=== PATIENT | female | born 1990 | race Caucasian/White ===

== ENCOUNTER 2020-10-02 04:22 | Outpatient (RCR) | payer BC, SELFPAY | END 2020-10-06 23:59 | LOC: EMPH 04:22 | PROVIDERS: Visit Provider Family Medicine Geriatric Medicine | DX: Z03.818 Encounter for observation for suspected exposure to other biological agents ruled out (principal) | CPT/HCPCS: 87426 ==

== ENCOUNTER 2020-10-29 10:28 | Outpatient (RCR) | payer SELFPAY ==
[2014-05-20 22:06] VITALS: BMI 35.2
== END 2020-11-06 23:59 ==
LOC: EMPH 10:28
PROVIDERS: Visit Provider Family Medicine Geriatric Medicine
DX: Z03.818 Encounter for observation for suspected exposure to other biological agents ruled out (principal)
CPT/HCPCS: 87426

== ENCOUNTER → 2021-07-26 | Outpatient (CLI) | payer OTHER, MEDICAID, SELFPAY ==
[2021-08-01 18:17] LABS: HPV Reflexed? NOT INDICATED
== END | disposition home or self-care (01) ==
LOC: LABSPEC 17:05
PROVIDERS: Referring Provider Obstetrics & Gynecology; Visit Provider Obstetrics & Gynecology
DX: Z12.4 Encounter for screening for malignant neoplasm of cervix (principal)
CPT/HCPCS: 88175; G0145

== ENCOUNTER → 2022-06-09 | Outpatient (CLI) | payer OTHER, MEDICAID, SELFPAY ==
[2022-06-09 15:20] LABS: Absolute Neutrophil Count 3.8 X10^3/uL (2.0-7.7); Basophil# 0.03 X10^3/uL; Basophil% 0.4 % (0-1); Eosinophil# 0.07 X10^3/uL; Hematocrit 40.3 % (37-47); Hemoglobin 13.3 g/dL (12.0-15.0); Lymphocyte % 32.9 % (19-41); Mean Corpuscular Hgb 28.4 pg (27.0-32.0); Mean Corpuscular Volume 86.1 fL (81-99); Mean Platelet Vol. 11.5 fl (6.2-12.0); NRBC Flagged by Analyzer 0 % (0-5); Neutrophil # 3.76 X10^3/uL (2.7-7.7); Neutrophil % 56.4 % (47-70); Platelet Count 301 K/mm3 (150-450); RBC Distribution Width CV 12.7 % (11.6-14.6); RBC Distribution Width SD 39.7 fl (35.1-43.9); Red Blood Count 4.68 M/mm3 (4.2-5.4); White Blood Count 6.7 K/mm3 (4.4-11.0)
[2022-06-09 16:04] LABS: Hemoglobin A1c 5.5 % (3.8-5.6)
[2022-06-09 16:05] LABS: AST(SGOT) 20 U/L (15-37); Alanine Aminotransfer ALT/SGPT 39 U/L (13-56); Albumin, Serum 3.8 g/dL (3.2-5.0); Alkaline Phosphatase 48 U/L (45-117); Anion Gap 5 (5-15); BUN 13 mg/dL (7-18); BUN/Creat Ratio 15.7 RATIO (10-20); Calcium,Total 8.8 mg/dL (8.5-10.1); Chloride 109 mmol/L (98-107); Cholesterol 207 mg/dL (200); Creatinine, Serum 0.83 mg/dL (0.55-1.02); EST Glomerular Filtration Rate 86 mL/min (>60); Est Glom Filt Rate - Afr Amer 104 mL/min (>60); Globulin 3.9 g/dL (2.2-4.2); Glucose 91 mg/dL (74-106); High Density Lipoprotein 40 mg/dL; Potassium 3.9 mmol/L (3.5-5.1); Protein, Total 7.7 g/dL (6.4-8.2); Sodium Level 139 mmol/L (136-145); Thyroid Stim Hormone (TSH) 1.47 uIU/mL (0.358-3.74); Triglycerides 99 mg/dL; Very Low Density Lipoprotein 20 mg/dL (5-40)
== END | disposition home or self-care (01) ==
LOC: MFPLAB 12:07
PROVIDERS: Visit Provider Family Medicine
DX: Z13.29 Encounter for screening for other suspected endocrine disorder (principal); E78.2 Mixed hyperlipidemia; Z13.1 Encounter for screening for diabetes mellitus
CPT/HCPCS: 36415; 80053; 80061; 83036; 84443; 85025

== ENCOUNTER → 2022-08-07 | Outpatient (CLI) | payer OTHER, MEDICAID, SELFPAY | END | disposition home or self-care (01) | PROVIDERS: Visit Provider Family Medicine | DX: J02.9 Acute pharyngitis, unspecified (principal) | CPT/HCPCS: 87070; 87077 ==

== ENCOUNTER → 2023-10-30 | Outpatient (CLI) | payer OTHER, SELFPAY ==
--- NOTE | 2023-10-30 12:58 | RAD_ITS ---
STUDY: X-RAY CHEST REASON FOR EXAM: Female, 33 years old. Cough. TECHNIQUE: Frontal and lateral views of the chest. COMPARISON: None. FINDINGS: The lungs are clear and expanded. There is no demonstrated pleural abnormality. Normal size heart. Normal mediastinum and tegan. Normal visualized pulmonary arteries. Normal visualized aortic arch and descending thoracic aorta. Normal visualized thoracic spine. Normal visualized ribs, clavicles, and shoulders. No abnormality of the visualized soft tissue structures of the upper abdomen. RAD/Chest PA and Lateral IMPRESSION: Normal x-ray examination of the chest. Electronically Signed: Nasim Rivas MD at 13:44 EDT ,
== END | disposition home or self-care (01) ==
LOC: MTRAD 12:58
PROVIDERS: PCP Family Medicine; Referring Provider Physician Assistant Surgical; Visit Provider Physician Assistant Surgical
DX: U07.1 COVID-19 (principal)
CPT/HCPCS: 71046

== ENCOUNTER → 2023-12-11 | Outpatient (CLI) | payer OTHER, SELFPAY ==
[2023-12-11 15:53] LABS: Vitamin D,25 Hydroxy 29.7 ng/mL
[2023-12-11 16:00] LABS: Hemoglobin A1c 5.3 % (3.8-5.6)
== END | disposition home or self-care (01) ==
LOC: BIMLAB 14:04
PROVIDERS: PCP Family Medicine; Referring Provider Registered Nurse; Visit Provider Registered Nurse
DX: Z13.1 Encounter for screening for diabetes mellitus (principal); Z13.21 Encounter for screening for nutritional disorder; Z13.29 Encounter for screening for other suspected endocrine disorder
CPT/HCPCS: 36415; 82306; 83036; 84439; 84443

== ENCOUNTER → 2023-12-23 | Outpatient (CLI) | payer OTHER, SELFPAY ==
[2023-12-23 17:46] LABS: Platelet Count 296 K/mm3 (150-450); RET-HE 31.6 pg (30-35); Reticulocyte Count 1.71 % (0.5-1.5)
[2023-12-23 17:48] LABS: Prothrombin Time (Protime)PT. 12.7 SECONDS (11.7-14.9)
[2023-12-23 17:54] LABS: Erythrocyte Sedimentation Rate 8 mm/hr (0-30)
[2023-12-23 18:26] LABS: CRP 3.17 mg/L (0.0-3.0); Ferritin 49 ng/mL (8-252); Iron 63 ug/dL (50-170); Iron Binding Capacity,Total 337 ug/dL (250-450); LDH 210 U/L (84-246); Rheumatoid Factor < 10.0 IU/mL (<15)
[2023-12-29 14:09] LABS: Anti-Centromere B Ab <0.2 AI (0.0-0.9); Anti-Chromatin <0.2 AI (0.0-0.9); Anti-Jo <0.2 AI (0.0-0.9); Anti-Mitochondrial AB <20.0 Units (0.0-20.0); Anti-Scleroderma-70 AB 0.3 AI (0.0-0.9); Anti-dsDNA Ab 2 IU/mL (0-9); RNP Ab 0.3 AI (0.0-0.9); SJOGREN'S Anti-SS-A test < 0.2 AI (0.0-0.9); SJOGREN'S Anti-SS-B test < 0.2 AI (0.0-0.9); Smith Ab <0.2 AI (0.0-0.9)
[2023-12-30 15:09] LABS: ACCA 42 units (0-90); ALCA 22 units (0-60); AMCA 48 units (0-100); Albumin 3.5 g/dL (2.9-4.4); Alpha-1-Globulins 0.2 g/dL (0.0-0.4); Alpha-2-Globulins 0.7 g/dL (0.4-1.0); Angiotensin Convert Enzyme 40 U/L (14-82); Anti-Smooth Muscle ABS 9 Units (0-19); CCP IgG Antibodies 9 units (0-19); Ceruloplasmin 25.3 mg/dL (19.0-39.0); Copper, Serum or Plasma 108 ug/dL (80-158); Cytoplasmic Ab (C-ANCA) <1:20 titer (Neg:<1:20); Endomysial Antibody IgA Negative (Negative); Gamma Globulin 1.4 g/dL (0.4-1.8); Immunoglobulin A 326 mg/dL (87-352); Immunoglobulin E 2 IU/mL (.); Immunoglobulin G 1241 mg/dL (586-1602); Immunoglobulin M 261 mg/dL (26-217); Perinuclear Ab (P-ANCA) <1:20 titer (Neg:<1:20); Transferrin 270 mg/dL (192-364); gASCA 29 units (0-50); t-Transglutaminase IgA 11 U/mL (0-3)
== END | disposition home or self-care (01) ==
LOC: BIMLAB 15:23
PROVIDERS: PCP Family Medicine; Referring Provider Internal Medicine Gastroenterology; Visit Provider Internal Medicine Gastroenterology
DX: R74.01 Elevation of levels of liver transaminase levels (principal); K58.9 Irritable bowel syndrome, unspecified
CPT/HCPCS: 36415; 82164; 82390; 82525; 82607; 82728; 82746; 82784; 82785; 83516; 83540; 83550; 83615; 84165; 84443; 84466; 85045; 85610; 85652; 86036; 86037; 86140; 86200; 86225; 86235; 86255; 86334; 86431; 86671

== ENCOUNTER → 2024-01-01 | Outpatient (CLI) | payer OTHER, SELFPAY ==
--- NOTE | 2024-01-01 08:29 | US_ITS ---
STUDY: ABDOMINAL ULTRASOUND - RIGHT UPPER QUADRANT; ELASTOGRAPHY REASON FOR VISIT: Female, 33 years old. Elevated liver enzymes. TECHNIQUE: Ultrasound evaluation of the right upper quadrant was performed with real-time and static damian-scale imaging. Point quantification shear wave elastography was performed (Plastio). TECHNICAL QUALITY: Adequate. COMPARISON: None. FINDINGS: Liver: The liver measures 16.5 cm. There is increased echogenicity consistent with fatty infiltration. The bile ducts are within normal limits. There is hepatic color flow. The direction of portal flow is hepatopetal. There is no demonstrated mass lesion. Median liver stiffness measured 7.6 kPa. Gallbladder: Normal distended gallbladder. The gallbladder wall measures 1.7 mm. There is a negative sonographic Victor''s sign. There is no pericholecystic fluid. There are no gallstones. Sludge is seen within the gallbladder lumen. Common Bile Duct (C.B.D.): The common bile duct measures 2.3 mm. Pancreas: There is normal echogenicity of the visualized pancreas. There is no demonstrated pancreatic mass or cyst. Right Kidney: Normal size of the right kidney. The right kidney measures 10.7 cm x 4.3 cm x 5.2 cm. Normal renal cortex. The right cortex measures 1.4 cm. There is no demonstrated renal mass or cyst. There is no right hydronephrosis. US/ABD Limited w/ Elastography IMPRESSION: 1. Liver stiffness measures 7.6 kPa compatible with F2-F3 (Mild to moderate liver fibrosis) Metavir score. Electronically Signed: Sony Espinoza MD at 11:10 EDT ,
--- OUTSIDE RECORDS SUMMARY | 2024-01-01 08:52 | XMS RPT_ITS | CCD ---
Author Organization [facility] Care Team Providers Care Paid Search Marketing Analyst Name Role Phone EL PARKS Attending Unavailable EL PARKS Primary Care Unavailable Smooth Charles MD Primary Care Provider [phone] Smooth Charles MD Primary Care Provider [phone] OLDER, LI Attending Unavailable SMOOTH CHARLES Primary Care Unavailable SMOOTH CHARLES Primary Care Unavailable OLDER, LI Referring Unavailable OLDER, LI Referring Unavailable OLDER, LI Attending Unavailable SMOOTH CHARELS Primary Care Unavailable SMOOTH CHARLES Primary Care Unavailable Medications Current Medications Medication Drug Class(es) Dates Sig (Normalized) Sig (Original) cephalexin 500 mg oral capsule (1 source) Cephalosporin Antibacterial Start: 11-13-2021 End: 11-18-2021 take 1 capsule by mouth three times daily cephALEXin (KEFLEX) 500 mg capsule Take 1 capsule by mouth three times daily for 5 days. 15 capsule 0 11/13/2021 11/18/2021 Active Comment on above: [facility]. Completed/Discontinued Medications Medication Drug Class(es) Dates Sig (Normalized) Sig (Original) ergocalciferol 1.25 mg oral capsule (2 sources) Provitamin D2 Compound Start: 06-04-2021 End: 08-06-2021 take 1 capsule by mouth every week ergocalciferol 50,000 unit capsule (VITAMIN D2, DRISDOL) Take 1 capsule by mouth one time a week. 12 capsule 0 06/04/2021 08/06/2021 Discontinued (Course of therapy completed) Comment on above: [facility]. ondansetron 4 mg disintegrating oral tablet (5 sources) Serotonin-3 Receptor Antagonist Start: 05-17-2021 End: 06-04-2021 take 1 tablet by mouth every six hours as needed ondansetron orally disintegrating (ZOFRAN ODT) 4 mg disintegrating tablet Take 1 tablet by mouth every 6 hours as needed for nausea/vomiting. 30 tablet 2 06/04/2021 Active Comment on above: Take 1 tablet by sandra th every 6 hours as needed for nausea/vomiting. rimegepant 75 mg disintegrating oral tablet (5 sources) Start: 06-04-2021 End: 08-06-2021 take 1 tablet by mouth once daily rimegepant (NURTEC ODT) 75 mg disintegrating tablet Take 1 tablet by mouth once daily. 30 tablet 11 08/06/2021 Active Comment on above: Take 1 tablet by sandra th once daily as needed. Take 1 tablet by sandra th once daily. SUMAtriptan 50 mg oral tablet (4 sources) Serotonin-1b and Serotonin-1d Receptor Agonist Start: 05-15-2021 SUMAtriptan (IMITREX) 50 mg tablet Take at onset of migraine. Can repeat in 2 hours if no relief. No more than 100 mg in 24 hours 9 tablet 2 05/15/2021 Active Comment on above: Take at onset of vahe trish. Can repeat in 2 hours if no relief. No more than 100 mg in 24 hours Problems Active Problems Problem Classification Problem Date Documented Da te Episodic/Chronic Diseases of white blood cells (2 sources) Leukocytosis; Translations: [Elevated white blood cell count, unspecified] Onset: 07-29-2021 Chronic Headache; including migraine (9 sources) Migraine without aura, not refractory ; Translations: [Chronic migraine without aura, not intractable, without status migrainosus] Onset: 05-17-2021 Chronic Nutritional deficiencies (3 sources) Vitamin D deficiency; Translations: [Vitamin D deficiency, unspecified] Onset: 07-29-2021 Chronic Other skin disorders (1 source) Localized swelling of left lower leg; Translations: [Localized swelling, mass and lump, left lower limb] Episodic Skin and subcutaneous tissue infections (1 source) Cellulitis of left lower limb; Translations: [Cellulitis of left lower limb] Episodic Past or Other Problems Problem Classification Problem Date Documented Da te Episodic/Chronic Diabetes mellitus without complication (2 sources) Increased glucose level; Translations: [Other abnormal glucose] Onset: 07-29-2021 Episodic Other skin disorders (2 sources) Nonscarring hair loss, unspecified; Translations: [Nonscarring hair loss, unspecified] Onset: 05-12-2017 Episodic Results Test Name Value Interpretation Reference Range Hudson Dimas 06-09-2022 JUDITHN Telephone (FAMPWS) PASCALE VELA ([id number]) 1990 F Date Time Provider Department 06/09/22 SMOOTH CHARLES FAMPWS During your visit today, we recorded the following information about you: Lynette Rodriguez LPN 06/09/2022 10:47 AM Signed Fuad pharmacist with [facility] Pharmacy called to let you know the followin)Nurtec comes in pack of 8 and usually insurance will cover 8 per month. May want to put thru for as needed. 2)Medication will need a PA done PRIOR AUTHORIZATION Medication for Prior Authorization: Nurtex Other formulary meds available : NO Insurance Company: Primary - [facility] hospital Insurance [employer] 2nd Ins. [place] Medicaid [employer] phone number: Prim [phone] 2nd Ins [phone] Patient insurance ID number: [id number] 3)can change medication to something else. This has not been sent to our PA dept. yet. Lynette Rodriguez LPN Allergies As of Date: 06/09/2022 (No Known Allergies) Date Reviewed: 11/27/2021 Reviewed by: Li Blackmon APRN.[facility] - Fully Assessed Reason for Visit: Medication Problem [65] Order(s):rimegepant (NURTEC ODT) 75 mg disintegrating tabletTake 1 tablet by mouth every other day.Disp: 16 tabletRfl: 5 Prescriptions as of 06/11/2022 - rimegepant (NURTEC ODT) 75 mg disintegrating tablet Take 1 tablet by mouth every other day. - ondansetron orally disintegrating (ZOFRAN ODT) 4 mg disintegrating tablet Take 1 tablet by mouth every 6 hours as needed for nausea/vomiting. - SUMAtriptan (IMITREX) 50 mg tablet Take at onset of migraine. Can repeat in 2 hours if no relief. No more than 100 mg in 24 hours Problem List As Of Date 06/09/2022 Noted Resolved Family history of Down syndrome [Z82.79] 05/11/2012 09/11/2014 Supervision of normal first [Z34.00] 07/20/2012 01/02/2014 Short interval between pregnancies complicating* 4 09/11/2014 Support system deficit [Z65.8] 10/10/2013 09/11/2014 Nausea/vomiting in [O21.9] 10/10/2013 09/11/2014 Diarrhea [R19.7] 10/10/2013 09/11/2014 Supervision of normal [Z34.90] 01/02/2014 09/11/2014 Heavy menstrual bleeding [N92.0] 09/11/2014 05/15/2021 Abnormal uterine bleeding [N93.9] 09/11/2014 05/15/2021 Cervicalgia [M54.2] 10/02/2017 05/15/2021 Benign mole [D22.9] 01/04/2018 05/15/2021 Neoplasm of uncertain behavior of skin [D48.5] 01/04/2018 05/15/2021 Intractable chronic migraine without aura and w*05/17/2021 Chronic migraine without aura without status mi*08/06/2021 Prescriptions ordered this encounter Disp Refills Start End NURTEC ODT 75 MG DISINTEGRATING TABL* 16 t* 5 06/09/2022 Route: ORAL Sig: Take 1 tablet by mouth every other day. Medications Discontinued During This Encounter Prescriptions - rimegepant (NURTEC ODT) 75 mg disintegrating tablet (Discontinued) Take 1 tablet by mouth once daily. Encounter Status:Closed by LYNETTE RODRIGUEZ LPN on 06/11/22 [facility] CNOVon 11-27-2021 CNOV Office Visit (INT[facility] ) PASCALE VELA ([id number]) 1990 F Date Time Provider Department 11/27/21 2:40 PM OLDER, LI GUADARRAMA During your visit today, we recorded the following information about you: Temperature Pulse Respiration Blood pressure 97.3 degrees 68/minute 18/minute 124/74 Weight 88 kg Li Older, GRADER OPERATOR.BEAD TRIMMER 11/27/2021 2:44 PM Signed CC: Patient presents with: Contusion HPI Pascale Vela is a 31 year old female who presents today for above. Patient reports bruised appearing swollen area on the side of her left lower leg. She denies any injury to leg, unsure where it came from. She was seen for this in urgent care on 11/13. Treated for possible cellulitis with Keflex. Patient reports this did not help. Area has become more tender. Denies increase in size or change in color. She has treated with ice without any improvement. REVIEW OF SYSTEMS General: no fevers, no chills, no night sweats, and no change in energy PAST MEDICAL HISTORY Diagnosis Date Abnormal uterine bleeding 09/11/2014 Benign mole 01/04/2018 Added automatically from request for surgery [id number] Cervicalgia 10/02/2017 Heavy menstrual bleeding 09/11/2014 IBS (irritable bowel syndrome) Migraines Neoplasm of uncertain behavior of skin 01/04/2018 PM - PAST MEDICAL HISTORY OF 06/04/2006 normal color vision PAST SURGICAL HISTORY Procedure Laterality Date COLONOSCOPY FLX DX W/COLLJ SPEC WHEN PFRMD Colonoscopy PAST SURGICAL HISTORY OF CERVICAL LACERATION REPAIR ALLERGIES Patient has no known allergies. MEDICATIONS rimegepant (NURTEC ODT) 75 mg disintegrating tablet Take 1 tablet by mouth once daily. ondansetron orally disintegrating (ZOFRAN ODT) 4 mg disintegrating tablet Take 1 tablet by mouth every 6 hours as needed for nausea/vomiting. SUMAtriptan (IMITREX) 50 mg tablet Take at onset of migraine. Can repeat in 2 hours if no relief. No more than 100 mg in 24 hours FAMILY HISTORY Problem Relation Age of Onset No Known Problems Mother No Known Problems Father other (Mole removed) Brother Cancerous Lung Cancer Maternal Grandmother Heart Maternal Grandfather murmur Hypertension Paternal Grandmother Breast Cancer Paternal Grandmother Heart Paternal Grandfather [place], Pacemaker age 35 year Diabetes Paternal Grandfather No Known Problems Daughter No Known Problems Son Social History Tobacco Use Smoking status: Never Smokeless tobacco: Never Vaping Use Vaping Use: Never used Substance Use Topics Alcohol use: Yes Comment: Rarely Drug use: No PHYSICAL EXAM BP 124/74 (BP Site: Left Arm, BP Position: Sitting, BP Cuff Size: Large Adult) Pulse 68 Temp 36.3 ?C (97.3 ?F) (Temporal) Resp 18 Wt 88 kg (194 lb) LMP 10/24/2018 BMI 36.96 kg/m? General Appearance: well appearing, in no acute distress, alert Ext: no edema in LE bilaterally, good distal pulses, capillary refill < 2 seconds ASSESSMENT/PLAN: 1. Localized swelling of left lower leg - ICD9: 782.2, ICD10: R22.42 Etiology unclear. Possible hematoma. Findings not consistent with infection/abscess. - US EXTREMITY MASS/FLUID COLLECTION LT, patient prefers to have done at [facility] - follow-up pending results Prescription instructions reviewed with patient as applicable. Potential red flag symptoms discussed with the patient. Reviewed appropriate action plan to take if red flag symptoms occur. Patient agreeable to treatment plan. Li Blackmon APRN.CNP Referring Provider: SELF [200] Allergies As of Date: 11/27/2021 (No Known Allergies) Date Reviewed: 11/27/2021 Reviewed by: Li Blackmon APRN.CNP - Fully Assessed Reason for Visit: Contusion [Other] Primary Visit Diagnosis:Localized swelling of left lower leg [R22.42] Order(s):US EXTREMITY MASS/FLUID COLLECTION LT [[id number]] Order #: [id number] FUTURE Prescriptions as of 11/27/2021 - rimegepant (NURTEC ODT) 75 mg disintegrating tablet Take 1 tablet by mouth once daily. - ondansetron orally disintegrating (ZOFRAN ODT) 4 mg disintegrating tablet Take 1 tablet by mouth every 6 hours as needed for nausea/vomiting. - SUMAtriptan (IMITREX) 50 mg tablet Take at onset of migraine. Can repeat in 2 hours if no relief. No more than 100 mg in 24 hours Problem List As Of Date 11/27/2021 Noted Resolved Family history of Down syndrome [Z82.79] 05/11/2012 09/11/2014 Supervision of normal first [Z34.00] 07/20/2012 01/02/2014 Short interval between pregnancies complicating* 4 09/11/2014 Support system deficit [Z65.8] 10/10/2013 09/11/2014 Nausea/vomiting in [O21.9] 10/10/2013 09/11/2014 Diarrhea [R19.7] 10/10/2013 09/11/2014 Supervision of normal [Z34.90] 01/02/2014 09/11/2014 Heavy menstrual bleeding [N92.0] 09/11/2014 05/15/2021 Abnormal uterine bleeding [N93.9] 09/11/2014 05/15/2021 Cervicalgia [M54.2] 10/02/2017 05/15/2021 Benign mol (more content not included)... Normal [facility] CNOVon 11-13-2021 [facility] PASCALE VELA ([id number]) 1990 F Date Time Provider Department 11/13/21 11:45 AM JUSTIN MUNIZ [facility] During your visit today, we recorded the following information about you: Temperature Pulse Respiration Blood pressure 98 degrees 92/minute 16/minute 118/68 Weight 88.9 kg Justin Muniz APRN.BEAD TRIMMER 11/13/2021 12:14 PM Signed Subjective HPI Nontoxic-appearing female presents urgent care chief complaint rash and redness. Duration of symptoms 1 month. Associated symptoms area started out as a small red teddy. Has since increased in size and discomfort. Patient states over the last week this area has increased in size and has became painful. Has not used any OTC medications. Denies any Injuries. No recent medication changes or recent antibiotic use. No recent lifestyle changes or environmental changes. Denies any fever body aches chills cough chest pain shortness of breath change in bowel or bladder habits. Overall feels well. Denies chance of is not breast-feeding. .Patient presents with: Derm Problem: rash and redness on left sanders, painful x 1 month PAST MEDICAL HISTORY Diagnosis Date Abnormal uterine bleeding 09/11/2014 Benign mole 01/04/2018 Added automatically from request for surgery [id number] Cervicalgia 10/02/2017 Heavy menstrual bleeding 09/11/2014 IBS (irritable bowel syndrome) Migraines Neoplasm of uncertain behavior of skin 01/04/2018 PMH - PAST MEDICAL HISTORY OF 06/04/2006 normal color vision PAST SURGICAL HISTORY Procedure Laterality Date COLONOSCOPY FLX DX W/COLLJ SPEC WHEN PFRMD Colonoscopy PAST SURGICAL HISTORY OF CERVICAL LACERATION REPAIR ALLERGIES Patient has no known allergies. MEDICATIONS rimegepant (NURTEC ODT) 75 mg disintegrating tablet Take 1 tablet by mouth once daily. ondansetron orally disintegrating (ZOFRAN ODT) 4 mg disintegrating tablet Take 1 tablet by mouth every 6 hours as needed for nausea/vomiting. SUMAtriptan (IMITREX) 50 mg tablet Take at onset of migraine. Can repeat in 2 hours if no relief. No more than 100 mg in 24 hours FAMILY HISTORY Problem Relation Age of Onset No Known Problems Mother No Known Problems Father other (Mole removed) Brother Cancerous Lung Cancer Maternal Grandmother Heart Maternal Grandfather murmur Hypertension Paternal Grandmother Breast Cancer Paternal Grandmother Heart Paternal Grandfather [place], Pacemaker age 35 year Diabetes Paternal Grandfather No Known Problems Daughter No Known Problems Son Social History Tobacco Use Smoking status: Never Smokeless tobacco: Never Vaping Use Vaping Use: Never used Substance Use Topics Alcohol use: Yes Comment: Rarely Drug use: No BP 118/68 Pulse 92 Temp 36.7 ?C (98 ?F) Resp 16 Wt 88.9 kg (196 lb) LMP 10/24/2018 SpO2 99% BMI 37.34 kg/m? Review of Systems Constitutional: Negative for chills, fever and malaise/fatigue. HENT: Negative for congestion, ear discharge, ear pain, sinus pain and sore throat. Eyes: Negative for blurred vision, pain, discharge and redness. Respiratory: Negative for cough, hemoptysis, sputum production, shortness of breath, wheezing and stridor. Cardiovascular: Negative for chest pain. Gastrointestinal: Negative for abdominal pain, diarrhea, nausea and vomiting. Musculoskeletal: Negative for myalgias. Skin: Positive for itching. Negative for rash. Neurological: Negative for dizziness and headaches. Objective Physical Exam Constitutional: General: She is not in acute distress. Appearance: She is not diaphoretic. HENT: Head: Normocephalic. Eyes: Conjunctiva/sclera: Conjunctivae normal. Pupils: Pupils are equal, round, and reactive to light. Cardiovascular: Rate and Rhythm: Normal rate and regular rhythm. Heart sounds: Normal heart sounds. Pulmonary: Effort: Pulmonary effort is normal. No tachypnea, accessory muscle usage or respiratory distress. Breath sounds: Normal breath sounds. No stridor. No wheezing, rhonchi or rales. Abdominal: Palpations: Abdomen is soft. Tenderness: There is no abdominal tenderness. Musculoskeletal: Cervical back: Normal range of motion and neck supple. No rigidity or tenderness. Lymphadenopathy: Cervical: No cervical adenopathy. Skin: General: Skin is warm and dry. Comments: A 4 cm x 3 cm area of of redness noted. No fluctuance. No remote redness. No drainage. Pain with palpation over this area. No breaks in skin. Neurological: Mental Status: She is alert and oriented to person, place, and time. ASSESSMENT/PLAN: 1. Cellulitis of left lower extremity - ICD9: 682.6, ICD10: L03.116 Contact dermatitis versus cellulitis. Will be placed on Keflex at today's visit. Follow-up with PCP 3 to 5 days symptoms are not improving. Patient was educated on supportive therapies. Patient was instructed to im (more content not included)... Normal [facility] CNOVon 08-06-2021 CNOV Office Visit ([facility] ) PASCALE VELA ([id number]) 1990 F Date Time Provider Department 08/06/21 1:40 PM OLDER, LI CONSTANTINOMMYNOR During your visit today, we recorded the following information about you: Pulse Respiration Blood pressure Weight 76/minute 14/minute 112/82 86.2 kg Li Older, GRADER OPERATOR.JUDITH 08/06/2021 2:03 PM Signed CC: Patient presents with: Medication Follow-up HPI Pascale Vela is a 31 year old female who presents today for above. Patient was started on Nurtec 06/04 for frequent, debilitating migraines. Today she reports she has only had 3 migraines since starting medication. They were not severe and resolved quickly without interfering with ADL's.She has only needed Zofran and Imitrex for one of those migraines. No side effects. She was also treated for vitamin D deficiency x 12 weeks. Fatigue has resolved and vit D level normal. REVIEW OF SYSTEMS See HPI PAST MEDICAL HISTORY Diagnosis Date - Abnormal uterine bleeding 09/11/2014 - Benign mole 01/04/2018 Added automatically from request for surgery [id number] - Cervicalgia 10/02/2017 - Heavy menstrual bleeding 09/11/2014 - IBS (irritable bowel syndrome) - Migraines - Neoplasm of uncertain behavior of skin 01/04/2018 - PMH - PAST MEDICAL HISTORY OF 06/04/2006 normal color vision PAST SURGICAL HISTORY Procedure Laterality Date - COLONOSCOPY FLX DX W/COLLJ SPEC WHEN PFRMD Colonoscopy - PAST SURGICAL HISTORY OF CERVICAL LACERATION REPAIR ALLERGIES Patient has no known allergies. MEDICATIONS rimegepant (NURTEC ODT) 75 mg disintegrating tablet Take 1 tablet by mouth once daily as needed. ondansetron orally disintegrating (ZOFRAN ODT) 4 mg disintegrating tablet Take 1 tablet by mouth every 6 hours as needed for nausea/vomiting. SUMAtriptan (IMITREX) 50 mg tablet Take at onset of migraine. Can repeat in 2 hours if no relief. No more than 100 mg in 24 hours FAMILY HISTORY Problem Relation Age of Onset - No Known Problems Mother - No Known Problems Father - other (Mole removed) Brother Cancerous - Lung Cancer Maternal Grandmother - Heart Maternal Grandfather murmur - Hypertension Paternal Grandmother - Breast Cancer Paternal Grandmother - Heart Paternal Grandfather [place], Pacemaker age 35 year - Diabetes Paternal Grandfather - No Known Problems Daughter - No Known Problems Son Social History Tobacco Use - Smoking status: Never Smoker - Smokeless tobacco: Never Used Vaping Use - Vaping Use: Never used Substance Use Topics - Alcohol use: Yes Comment: Rarely - Drug use: No PHYSICAL EXAM BP 112/82 Pulse 76 Resp 14 Wt 86.2 kg (190 lb) LMP 10/24/2018 BMI 36.20 kg/m? General Appearance: well appearing, in no acute distress, alert Pysch: mood and affect broad and appropriate DATA REVIEWED: Most recent labs ASSESSMENT/PLAN: 1. Chronic migraine without aura without status migrainosus, not intractable - ICD9: 346.70, ICD10: G43.709 (primary diagnosis) Marked improvement with Nurtec. Only 3 migraine days since starting. No medication side effects. Continue with Nurtec as prescribed. Follow-up in May for annual physical. 2. Vitamin D deficiency - ICD9: 268.9, ICD10: E55.9 resolved Prescription instructions reviewed with patient as applicable. Potential red flag symptoms discussed with the patient. Reviewed appropriate action plan to take if red flag symptoms occur. Patient agreeable to treatment plan. During this patient visit I have spent approximately 20 minutes in counseling regarding medications, test results and coordinating care. Li Blackmon APRN.CNP Referring Provider: LI BLACKMON [[id number]] Allergies As of Date: 08/06/2021 (No Known Allergies) Date Reviewed: 08/06/2021 Reviewed by: Li Blackmon APRN.BEAD TRIMMER - Fully Assessed Reason for Visit: Medication Follow-up [270] Primary Visit Diagnosis:Chronic migraine without aura without status migrainosus, not intractable [G43.709] Other Visit Diagnosis:Vitamin D deficiency [E55.9] Order(s):rimegepant (NURTEC ODT) 75 mg disintegrating tabletTake 1 tablet by mouth once daily.Disp: 30 tabletRfl: 11 Prescriptions as of 08/06/2021 - rimegepant (NURTEC ODT) 75 mg disintegrating tablet Take 1 tablet by mouth once daily. - ondansetron orally disintegrating (ZOFRAN ODT) 4 mg disintegrating tablet Take 1 tablet by mouth every 6 hours as needed for nausea/vomiting. - SUMAtriptan (IMITREX) 50 mg tablet Take at onset of migraine. Can repeat in 2 hours if no relief. No more than 100 mg in 24 hours Problem List As Of Date 08/06/2021 Noted Resolved Family history of Down syndrome [Z82.79] 05/11/2012 09/11/2014 Supervision of normal first [Z34.00] 07/20/2012 01/02/2014 Short interval between pregnancies complicating* 4 09/11/2014 Support system deficit [Z65.8] 10/10/2013 09/11/2014 Nausea/vomiting in [O21.9] (more content not included)... Normal [facility] CBC W Auto Differential pane l (Bld)on 07-29-2021 Basophils (Bld) [#/Vol] 0.05 10*3/uL Normal <0.11 [facility] Comment on above: Order Comment: Speci men Type: BLOOD SPECIMEN Ordering Facility: [facility] Address: [address] [place] [address] Performed By: #### 5 7021-8 #### [facility] CLIA [id number] [address] [place] [address] [place] Basophils/100 WBC (Bld) 0.6 % Normal [facility] Comment on above: Order Comment: Verónica martinez Type: BLOOD SPECIMEN Ordering Facility: [facility] Address: [address] [place] [address] Performed By: #### 5 7021-8 #### [facility] CLIA [id number] [address] [place] [address] [place] Differential cell count method Nom (Bld) Auto Normal [facility] Comment on above: Order Comment: Nehai juan Type: BLOOD SPECIMEN Ordering Facility: [facility] Address: [address] [place] [address] Performed By: #### 5 7021-8 #### [facility] CLIA [id number] [address] [place] [address] [place] Eosinophils (Bld) [#/Vol] 0.14 10*3/uL Normal <0.46 [facility] Comment on above: Order Comment: Speci men Type: BLOOD SPECIMEN Ordering Facility: [facility] Address: [address] [place], [place] [id number] Performed By: #### 5 7021-8 #### [facility] CLIA [id number] [address] [place] [address] [place] Eosinophils/100 WBC (Bld) 1.8 % Normal [facility] Comment on above: Order Comment: Speci men Type: BLOOD SPECIMEN Ordering Facility: [facility] Address: [address] [place], [place] [id number] Performed By: #### 5 7021-8 #### [facility] CLIA [id number] [address] [place] [address] [place] Erythrocyte distribution width (RBC) [Ratio] 12.6 % Normal 11.5-15.0 [facility] Comment on above: Order Comment: Speci men Type: BLOOD SPECIMEN Ordering Facility: [facility] Address: [address] [place], [place] [id number] Performed By: #### 5 7021-8 #### [facility] CLIA [id number] [address] [place] [address] [place] Hematocrit (Bld) [Volume fraction] 38.3 % Normal 36.0-46.0 [facility] Comment on above: Order Comment: Speci men Type: BLOOD SPECIMEN Ordering Facility: [facility] Address: [address] [place], [place] [address] Performed By: #### 5 7021-8 #### [facility] CLIA [id number] [address] [place] [address] [place] Hemoglobin (Bld) [Mass/Vol] 12.3 g/dL Normal 11.5-15.5 [facility] Comment on above: Order Comment: Speci men Type: BLOOD SPECIMEN Ordering Facility: [facility] Address: [address] [place], [place] [address] Performed By: #### 5 7021-8 #### [facility] CLIA [id number] [address] [place] [address] [place] IMMATURE GRAN % 0.3 % Normal [facility] Comment on above: Order Comment: Speci men Type: BLOOD SPECIMEN Ordering Facility: [facility] Address: [address] [place], [place] [address] Performed By: #### 5 7021-8 #### [facility] CLIA [id number] [address] [place] [address] [place] IMMATURE GRAN ABS <0.03 Normal <0.10 [facility] Comment on above: Order Comment: Speci men Type: BLOOD SPECIMEN Ordering Facility: [facility] Address: [address] [place] [address] Performed By: #### 5 7021-8 #### [facility] CLIA [id number] [address] [place] [address] [place] Lymphocytes (Bld) [#/Vol] 2.94 10*3/uL Normal 1.00-4.00 [facility] Comment on above: Order Comment: Speci men Type: BLOOD SPECIMEN Ordering Facility: [facility] Address: [address] [place], [place] [address] Performed By: #### 5 7021-8 #### [facility] CLIA [id number] [address] [place] [address] [place] Lymphocytes/100 WBC (Bld) 37.5 % Normal [facility] Comment on above: Order Comment: Speci men Type: BLOOD SPECIMEN Ordering Facility: [facility] Address: [address] [place] [address] Performed By: #### 5 7021-8 #### [facility] CLIA [id number] [address] [place] [address] [place] MCH (RBC) [Entitic mass] 27.7 pg Normal 26.0-34.0 [facility] Comment on above: Order Comment: Speci men Type: BLOOD SPECIMEN Ordering Facility: [facility] Address: [address] [place] [address] Performed By: #### 5 7021-8 #### [facility] CLIA [id number] [address] [place] [address] [place] MCHC (RBC) [Mass/Vol] 32.1 g/dL Normal 30.5-36.0 [facility] Comment on above: Order Comment: Speci men Type: BLOOD SPECIMEN Ordering Facility: [facility] Address: [address] [place] [address] Performed By: #### 5 7021-8 #### [facility] CLIA [id number] [address] [place] [address] [place] MCV (RBC) [Entitic vol] 86.3 fL Normal 80.0-100.0 [facility] Comment on above: Order Comment: Speci men Type: BLOOD SPECIMEN Ordering Facility: [facility] Address: [address] [place] [address] Performed By: #### 5 7021-8 #### [facility] CLIA [id number] [address] [place] [address] [place] Monocytes (Bld) [#/Vol] 0.78 10*3/uL Normal <0.87 [facility] Comment on above: Order Comment: Speci men Type: BLOOD SPECIMEN Ordering Facility: [facility] Address: [address] [place], [place] [address] Performed By: #### 5 7021-8 #### [facility] CLIA [id number] [address] [place] [address] [place] Monocytes/100 WBC (Bld) 10.0 % Normal [facility] Comment on above: Order Comment: Speci men Type: BLOOD SPECIMEN Ordering Facility: [facility] Address: [address] [place], [place] [address] Performed By: #### 5 7021-8 #### [facility] CLIA [id number] [address] [place] [address] [place] Neutrophils (Bld) [#/Vol] 3.90 10*3/uL Normal 1.45-7.50 [facility] Comment on above: Order Comment: Speci men Type: BLOOD SPECIMEN Ordering Facility: [facility] Address: [address] [place] [address] Performed By: #### 5 7021-8 #### [facility] CLIA [id number] [address] [place] [address] [place] Neutrophils/100 WBC (Bld) 49.8 % Normal [facility] Comment on above: Order Comment: Speci men Type: BLOOD SPECIMEN Ordering Facility: [facility] Address: [address] [place], [place] [address] Performed By: #### 5 7021-8 #### [facility] CLIA [id number] [address] [place] [address] [place] Nucleated RBC (Bld) [#/Vol] 10*3/uL Normal <0.01 [facility] Comment on above: Order Comment: Speci men Type: BLOOD SPECIMEN Ordering Facility: [facility] Address: [address] [place] [address] Performed By: #### 5 7021-8 #### [facility] CLIA [id number] [address] [place] [address] [place] Nucleated RBC/100 WBC (Bld) [Ratio] 0.0 /100 WBC Normal [facility] Comment on above: Order Comment: Speci men Type: BLOOD SPECIMEN Ordering Facility: [facility] Address: [address] [place] [address] Performed By: #### 5 7021-8 #### [facility] CLIA [id number] [address] [place] [address] [place] Platelet mean volume (Bld) [Entitic vol] 11.9 fL Normal 9.0-12.7 [facility] Comment on above: Order Comment: Speci men Type: BLOOD SPECIMEN Ordering Facility: [facility] Address: [address] [place], [place] [address] Performed By: #### 5 7021-8 #### [facility] CLIA [id number] [address] [place] [address] [place] Platelets (Bld) [#/Vol] 284 10*3/uL Normal 150-400 [facility] Comment on above: Order Comment: Speci men Type: BLOOD SPECIMEN Ordering Facility: [facility] Address: [address] [place], [place] [address] Performed By: #### 5 7021-8 #### [facility] CLIA [id number] [address] [place] [address] [place] RBC (Bld) [#/Vol] 4.44 10*6/uL Normal 3.90-5.20 [facility] Comment on above: Order Comment: Speci men Type: BLOOD SPECIMEN Ordering Facility: [facility] Address: [address] [place], [place] [address] Performed By: #### 5 7021-8 #### [facility] CLIA [id number] [address] [place] [address] [place] WBC (Bld) [#/Vol] 7.83 10*3/uL Normal 3.70-11.00 [facility] Comment on above: Order Comment: Speci men Type: BLOOD SPECIMEN Ordering Facility: [facility] Address: [address] [place], [place] [address] Performed By: #### 5 7021-8 #### [facility] CLIA [id number] [address] [place] [address] [place] HGB A1Con 07-29-2021 Average glucose Estimated from glycated hemoglobin (Bld) [Mass/Vol] 108 mg/dL Normal [facility] Comment on above: Order Comment: Verónica martinez Type: BLOOD SPECIMEN Ordering Facility: [facility] Address: [address] [place] [address] Result Comment: eAG: (Estimated average glucose) is a calculated value from HgbA1c and is customer solutions representative of the average blood glucose level in the last 2-3 month period. Performed By: #### H BA1C #### [facility] CLIA [id number] [address] [place] [address] [place] [facility] HbA1c (Bld) [Mass fraction] 5.4 % Normal 4.3-5.6 [facility] Comment on above: Order Comment: Verónica martinez Type: BLOOD SPECIMEN Ordering Facility: [facility] Address: [address] [place] [address] Result Comment: Amer [place] Diabetes Association guidelines indicate that patients with HgbA1c in the range 5.7-6.4% are at increased risk for development of diabetes, and intervention by lifestyle modification may be beneficial. HgbA1c greater or equal to 6.5% is considered diagnostic of diabetes. Performed By: #### H BA1C #### [facility] CLIA [id number] [address] [place] [address] [place] VITAMIN D 25 HYDROXYon 07-29 25-hydroxyvitamin D3 [Mass/Vol] 35.8 ng/mL Normal 31.0-80.0 [facility] Comment on above: Order Comment: Verónica martinez Type: BLOOD SPECIMEN Ordering Facility: [facility] Address: [address] [place] [address] Result Comment: Clas sification of 25 [place] Vitamin D status: Deficiency/Insufficiency: < or = 30 ng/ml. Sufficiency/Optimal Levels: 31-80 ng/mL Toxicity: > 100 ng/mL. Test performed by chemiluminescent immunoassay. Performed By: #### V ITD #### [facility] CLIA [id number] [address] [place] [address] [place] COVID PCR, SCREENING CONGREG ATEon 09-01-2019 CORONAVIRUS 2019,PCR NOT DETECTED Normal Not Detected [facility] Comment on above: Result Comment: This assay is designed to detect the N, ORF1ab and/or S genes of SARS-CoV-2 via nucleic acid amplification. A Negative (NOT DETECTED) result does not preclude 2019-nCoV infection since the adequacy of sample collection and/or low viral burden may result in presence of viral nucleic acids below the clinical sensitivity of this test method. Negative (NOT DETECTED) result should not be used as the sole basis for treatment or other patient management decisions. Rather negative results should be combined with clinical observations, patient history, and epidemiological information to make patient management decisions. Fact sheet for providers: https://www.fda.gov/media/816847/download Fact sheet for patients: https://www.fda.gov/media/297184/download This test has received FDA Emergency Use Authorization (EUA) and has been verified by [facility]). This test is only authorized for the duration of time that circumstances exist to justify the authorization of the emergency use of in vitro diagnostic tests for the detection of SARS-CoV-2 virus and/or diagnosis of COVID-19 infection under section 564(b)(1) of the Act, 21 U.S.C. 360bbb-3(b)(1), unless the authorization is terminated or revoked sooner. [facility]) is certified under CLIA-88 as qualified to perform high complexity testing. This tests analytical performance characteristics have been determined by [facility]. Testing is performed at [facility] is located at [address] [place] [address] (CLIA License #[id number], CAP #[id number]). Performed By: #### C VCLA #### [facility] [address] [place] [address] COVID PCR, SCREENING CONGREG ATEon 08-31-2019 Lab Specimen Source Nasal, Nasopharyngeal Normal [facility] Comment on above: Performed By: #### C VCLA #### [facility] [address] [place] [address] .Auto Diffon 05-12-2017 Ammonia mass conc (P) 0.70 10 3/mcL Normal 0.15-1.00 [facility] [place] Comment on above: Performed By: #### C BC, ADIFF, ANEU, TSH, CMP, GFR #### [address] [address] Basophils #/vol (Bld) 0.00 10 3/mcL Normal 0.00-0.19 [facility] [place] Comment on above: Performed By: #### C BC, ADIFF, ANEU, TSH, CMP, GFR #### [address] [address] Basophils/100 WBC (Bld) 0.5 % Normal 0.0-2.5 [facility] [place] Comment on above: Performed By: #### C BC, ADIFF, ANEU, TSH, CMP, GFR #### [address] [address] Eosinophils #/vol (Bld) 0.10 10 3/mcL Normal 0.00-0.40 [facility] [place] Comment on above: Performed By: #### C BC, ADIFF, ANEU, TSH, CMP, GFR #### [address] [address] Eosinophils/100 WBC (Bld) 1.0 % Normal 0.0-7.0 [facility] [place] Comment on above: Performed By: #### C BC, ADIFF, ANEU, TSH, CMP, GFR #### [address] [address] Lymphocytes #/vol (Bld) 2.70 10 3/mcL Normal 0.77-3.85 [facility] [place] Comment on above: Performed By: #### C BC, ADIFF, ANEU, TSH, CMP, GFR #### [address] [address] Lymphocytes/100 WBC (Bld) 36.1 % Normal 10.0-50.0 [facility] [place] Comment on above: Performed By: #### C BC, ADIFF, ANEU, TSH, CMP, GFR #### [address] [address] Monocytes/100 WBC (Bld) 9.0 % Normal 1.7-13.0 [facility] [place] Comment on above: Performed By: #### C BC, ADIFF, ANEU, TSH, CMP, GFR #### [address] [address] Neutrophils/100 WBC (Bld) 53.4 % Normal 37.0-80.0 [facility] [place] Comment on above: Performed By: #### C BC, ADIFF, ANEU, TSH, CMP, GFR #### [address] [address] .GFRon 05-12-2017 GFR Non- >60 Normal [facility] ([place] Comment on above: Result Comment: GFR Population mean for , Non- Americans Ages 20-29 = 116 mL/min/1.73 sq.m. Ages 30-39 = 107 mL/min/1.73 sq.m. Ages 40-49 = 99 mL/min/1.73 sq.m. Ages 50-59 = 93 mL/min/1.73 sq.m. Ages 60-69 = 85 mL/min/1.73 sq.m. Ages 70+ = 75 mL/min/1.73 sq.m. Chronic Kidney Disease: Less than 60 mL/min/1.73 square meters End Stage Renal Disease: Less than 15 mL/min/1.73 square meters Performed By: #### C BC, ADIFF, ANEU, TSH, CMP, GFR #### [address] [address] GFR 110 ml/min/1.73sqm Normal [facility] [place] Comment on above: Result Comment: GFR Population mean for , Non- Americans Ages 20-29 = 116 mL/min/1.73 sq.m. Ages 30-39 = 107 mL/min/1.73 sq.m. Ages 40-49 = 99 mL/min/1.73 sq.m. Ages 50-59 = 93 mL/min/1.73 sq.m. Ages 60-69 = 85 mL/min/1.73 sq.m. Ages 70+ = 75 mL/min/1.73 sq.m. Chronic Kidney Disease: Less than 60 mL/min/1.73 square meters End Stage Renal Disease: Less than 15 mL/min/1.73 square meters Performed By: #### C BC, ADIFF, ANEU, TSH, CMP, GFR #### [place] [id number] .NEUABSon 05-12-2017 Neutrophils #/vol (Bld) 4.00 10 3/mcL Normal 2.85-6.16 [facility] [place] Comment on above: Performed By: #### C BC, ADIFF, ANEU, TSH, CMP, GFR #### [place] [address] CBCon 05-12-2017 Erythrocyte distribution width Ratio (RBC) 13.5 % Normal 11.5-14.5 [facility] ([place] Comment on above: Performed By: #### C BC, ADIFF, ANEU, TSH, CMP, GFR #### [place] [address] Hematocrit Volume Fraction (Bld) 39.3 % Normal 37.0-47.0 [facility] ([place] Comment on above: Performed By: #### C BC, ADIFF, ANEU, TSH, CMP, GFR #### [place] [address] Hemoglobin mass conc (Bld) 12.8 G/dL Normal 12.0-16.0 [facility] ([place] Comment on above: Performed By: #### C BC, ADIFF, ANEU, TSH, CMP, GFR #### [place] [address] MCH Entitic mass (RBC) 27.4 pg Normal 27.0-31.2 [facility] ([place] Comment on above: Performed By: #### C BC, ADIFF, ANEU, TSH, CMP, GFR #### [place] [address] MCHC mass conc (RBC) 32.5 G/dL Low 33.0-37.0 [facility] ([place] Comment on above: Performed By: #### C BC, ADIFF, ANEU, TSH, CMP, GFR #### [address] [address] MCV Entitic volume (RBC) 84.3 fL Normal 80.0-94.0 [facility] ([place] Comment on above: Performed By: #### C BC, ADIFF, ANEU, TSH, CMP, GFR #### [place] [address] Platelet mean volume Entitic volume (Bld) 9.8 fL Normal 7.4-10.4 [facility] ([place] Comment on above: Performed By: #### C BC, ADIFF, ANEU, TSH, CMP, GFR #### [address] [address] Platelets #/vol (Bld) 350 10 3/mcL Normal 130-400 [facility] ([place] Comment on above: Performed By: #### C BC, ADIFF, ANEU, TSH, CMP, GFR #### [address] [address] RBC #/vol (Bld) 4.67 10 6/mcL Normal 4.20-5.40 [facility] ([place] Comment on above: Performed By: #### C BC, ADIFF, ANEU, TSH, CMP, GFR #### [address] [address] WBC #/vol (Bld) 7.50 10 3/mcL Normal 4.60-10.80 [facility] ([place] Comment on above: Performed By: #### C BC, ADIFF, ANEU, TSH, CMP, GFR #### [address] [address] CMPon 05-12-2017 Albumin mass conc 4.3 G/dL Normal 3.5-5.0 [facility] ([place] Comment on above: Performed By: #### C BC, ADIFF, ANEU, TSH, CMP, GFR #### [place] [id number] Albumin/Globulin mass ratio 1.5 {ratio} Normal 1.1-2.5 [facility] ([place] Comment on above: Performed By: #### C BC, ADIFF, ANEU, TSH, CMP, GFR #### [address] [address] ALP enzyme act/vol 49 U/L Normal 40-135 [facility] ([place] Comment on above: Performed By: #### C BC, ADIFF, ANEU, TSH, CMP, GFR #### [address] [address] ALT enzyme act/vol 14 U/L Normal 10-35 [facility] ([place] Comment on above: Performed By: #### C BC, ADIFF, ANEU, TSH, CMP, GFR #### [address] [address] AST enzyme act/vol 13 U/L Normal 10-40 [facility] ([place] Comment on above: Performed By: #### C BC, ADIFF, ANEU, TSH, CMP, GFR #### [address] [address] Bili Total 0.4 mg/dL Normal 0.2-1.0 [facility] ([place] Comment on above: Performed By: #### C BC, ADIFF, ANEU, TSH, CMP, GFR #### [address] [address] Calcium mass conc 9.3 mg/dL Normal 8.4-10.2 [facility] ([place] Comment on above: Performed By: #### C BC, ADIFF, ANEU, TSH, CMP, GFR #### [address] [address] Chloride molar conc 103 mmol/L Normal 98-107 [facility] ([place] Comment on above: Performed By: #### C BC, ADIFF, ANEU, TSH, CMP, GFR #### [address] [address] CO2 molar conc 26 mmol/L Normal 22-29 [facility] ([place] Comment on above: Performed By: #### C BC, ADIFF, ANEU, TSH, CMP, GFR #### [address] [address] Creatinine mass conc 0.8 mg/dL Normal 0.6-1.2 [facility] ([place] Comment on above: Performed By: #### C BC, ADIFF, ANEU, TSH, CMP, GFR #### [address] [address] Electrolyte Balance 9.0 mEq/L Normal [facility] ([place] Comment on above: Performed By: #### C BC, ADIFF, ANEU, TSH, CMP, GFR #### [place] [address] Globulin mass conc (S) 2.9 G/dL Normal [facility] ([place] Comment on above: Performed By: #### C BC, ADIFF, ANEU, TSH, CMP, GFR #### [place] [address] Glucose mass conc 93 mg/dL Normal 70-105 [facility] ([place] Comment on above: Performed By: #### C BC, ADIFF, ANEU, TSH, CMP, GFR #### [place] [address] Potassium molar conc 4.6 mmol/L Normal 3.5-5.1 [facility] ([place] Comment on above: Performed By: #### C BC, ADIFF, ANEU, TSH, CMP, GFR #### [place] [address] Protein mass conc 7.2 G/dL Normal 6.0-8.3 [facility] ([place] Comment on above: Performed By: #### C BC, ADIFF, ANEU, TSH, CMP, GFR #### [place] [address] Sodium molar conc 138 mmol/L Normal 136-146 [facility] ([place] Comment on above: Performed By: #### C BC, ADIFF, ANEU, TSH, CMP, GFR #### [facility] [place] [address] [place], [place] [address] Urea nitrogen mass conc 11.5 mg/dL Normal 7.0-18.0 [facility] ([place] Comment on above: Performed By: #### C BC, ADIFF, ANEU, TSH, CMP, GFR #### [address] [address] Urea nitrogen/Creatinin e mass ratio 14 ratio Normal 7-27 [facility] ([place] Comment on above: Performed By: #### C BC, ADIFF, ANEU, TSH, CMP, GFR #### [address] [address] TSHon 05-12-2017 Thyrotropin Qn 0.72 mcIU/mL Normal 0.27-4.20 [facility] ([place] Comment on above: Performed By: #### C BC, ADIFF, ANEU, TSH, CMP, GFR #### [address] [address] Vital Signs Date Time Vital Sign Value Performing Clinician Ofelia schultz 11-27-2021 14:19-0400 Body temperature 97.3 [degF] 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BEAD TRIMMER Work Phone: [facility] 11-27-2021 14:19-0400 Body weight 88 kg 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BEAD TRIMMER Work Phone: [facility] 11-27-2021 14:19-0400 Diastolic blood pressure 74 mm[Hg] 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BEAD TRIMMER Work Phone: [facility] 11-27-2021 14:19-0400 Heart rate 68 /min 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BEAD TRIMMER Work Phone: [facility] 11-27-2021 14:19-0400 Respiratory rate 18 /min 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BEAD TRIMMER Work Phone: [facility] 11-27-2021 14:19-0400 Systolic blood pressure 124 mm[Hg] 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BEAD TRIMMER Work Phone: [facility] 11-13-2021 11:47-0400 Body temperature 98.01 [degF] Justin Muniz GRADER OPERATOR.BEAD TRIMMER Work Phone: [facility] 11-13-2021 11:47-0400 Body weight 88.91 [facility] GRADER OPERATOR.BEAD TRIMMER Work Phone: [facility] 11-13-2021 11:47-0400 Diastolic blood pressure 68 mm[Hg] [facility] GRADER OPERATOR.BEAD TRIMMER Work Phone: [facility] 11-13-2021 11:47-0400 Heart rate 92 /min [facility] GRADER OPERATOR.BEAD TRIMMER Work Phone: [facility] 11-13-2021 11:47-0400 Respiratory rate 16 /min [facility] GRADER OPERATOR.BEAD TRIMMER Work Phone: [facility] 11-13-2021 11:47-0400 SaO2% (BldA) [Mass fraction] 99 % [facility] GRADER OPERATOR.BEAD TRIMMER Work Phone: [facility] 11-13-2021 11:47-0400 Systolic blood pressure 118 mm[Hg] [facility] GRADER OPERATOR.BEAD TRIMMER Work Phone: [facility] 08-06-2021 13:43-0400 Body weight 86.18 kg 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BEAD TRIMMER Work Phone: [facility] 08-06-2021 13:43-0400 Diastolic blood pressure 82 mm[Hg] 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BEAD TRIMMER Work Phone: [facility] 08-06-2021 13:43-0400 Heart rate 76 /min 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BEAD TRIMMER Work Phone: [facility] 08-06-2021 13:43-0400 Respiratory rate 14 /min 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BEAD TRIMMER Work Phone: [facility] 08-06-2021 13:43-0400 Systolic blood pressure 112 mm[Hg] 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BEAD TRIMMER Work Phone: [facility] 06-04-2021 12:56-0400 Body weight 87.82 kg 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BEAD TRIMMER Work Phone: [facility] 06-04-2021 12:56-0400 Diastolic blood pressure 80 mm[Hg] 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BEAD TRIMMER Work Phone: [facility] 06-04-2021 12:56-0400 Heart rate 68 /min 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BEAD TRIMMER Work Phone: [facility] 06-04-2021 12:56-0400 Systolic blood pressure 148 mm[Hg] [facility] Older GRADER OPERATOR.BEAD TRIMMER Work Phone: [facility] Encounters Encounter Date Encounter Type Care Provider Facility Start: 11-27-2021 End: 11-27-2021 ambulatory LI OLDER Facility:[facility] Start: 11-27-2021 End: 11-27-2021 Patient encounter procedure [facility] Older GRADER OPERATOR.BEAD TRIMMER Work Phone: [facility] Comment on above: Localized swelling o f left lower leg (Primary Dx) Start: 11-13-2021 End: 11-13-2021 ambulatory FILIBERTO CHARLES Facility:[facility] Start: 11-13-2021 End: 11-13-2021 Patient encounter procedure Justin Muniz GRADER OPERATOR.BEAD TRIMMER Work Phone: [facility] Comment on above: Cellulitis of left l ower extremity (Primary Dx) Start: 08-06-2021 End: 08-06-2021 ambulatory LI OLDER Facility:[facility] Start: 08-06-2021 End: 08-06-2021 Patient encounter procedure 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BEAD TRIMMER Work Phone: [facility] Comment on above: Chronic migraine wit hout aura without status migrainosus, not intractable (Primary Dx); Vitamin D deficiency Start: 07-29-2021 End: 07-29-2021 ambulatory FILIBERTO CHARLES Facility:[facility] Start: 06-04-2021 End: 06-04-2021 Patient encounter procedure 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BEAD TRIMMER Work Phone: [facility] Comment on above: Chronic migraine wit hout aura without status migrainosus, not intractable (Primary Dx); Vitamin D deficiency; Leukocytosis, unspecified type; Elevated glucose Start: 05-12-2017 End: 05-17-2017 Patient encounter procedure EL Mitchell KASEY Facility:B Procedures Date Procedure Procedure Detail Performing Clinician Start: 05-15-2021 Adult depression screening assessment 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[employer] Work Phone: Plan of Treatment Date Care Activity Detail Author Start: 02-28-2024 Urine microalbumin profile DTAP,TDAP,TD (7 - Td or Tdap) [facility] Start: 09-05-2022 Influenza vaccination INFLUENZA (#1) [facility] Comment on above: Postponed from 11/07 (Declined at this time) Start: 05-15-2022 Adult depression screening assessment DEPRESSION SCREENING [facility] Start: 11-07-2021 Influenza vaccination INFLUENZA (#1) [facility] Start: 08-21-2021 End: 10-21-2021 CBC W Auto Differential panel - Blood CBC + DIFF Lab Routine Leukocytosis, unspecified type Expected: 08/21/2021 (Approximate), Expires: 10/21/2021 [facility] Work Phone: Comment on above: Expected: 08/21/2021 (Approximate), Expires: 10/21/2021 Start: 08-21-2021 End: 10-21-2021 Hemoglobin A1c/Hemoglobin.total in Blood HGB A1C Lab Routine Elevated glucose Expected: 08/21/2021 (Approximate), Expires: 10/21/2021 [facility] Work Phone: Comment on above: Expected: 08/21/2021 (Approximate), Expires: 10/21/2021 Start: 08-21-2021 End: 10-21-2021 VITAMIN D 25 HYDROXY VITAMIN D 25 HYDROXY Lab Routine Vitamin D deficiency Expected: 08/21/2021 (Approximate), Expires: 10/21/2021 [facility] Work Phone: Comment on above: Expected: 08/21/2021 (Approximate), Expires: 10/21/2021 Start: 04-13-2021 COVID-19 VACCINE (4 - Booster for Moderna series) COVID-19 VACCINE (4 - Booster for Moderna series) [facility] Start: 07-05-2019 PAP TESTING PAP TESTING [facility] End: 12-27-2022 Us lmtd joint/oth nonvasc xtr strux r-t w/img US EXTREMITY MASS/FLUID COLLECTION LT Radiology Routine Localized swelling of left lower leg 1 Occurrences starting 11/27/2021 until 12/27/2022 [facility] Work Phone: Comment on above: 1 Occurrences starti ng 11/27/2021 until 12/27/[address] [facility] c Immunizations Immunization Date Immunization Notes Care Provider Tatyana pritchett 05-17-2018 human papilloma viru s vaccine, quadrivalent 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[facility] Work Phone: [facility] 05-17-2018 influenza, injectabl e, quadrivalent, contains preservative 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BEAD TRIMMER Work Phone: [facility] 07-04-2016 Human Papillomavirus 9-valent vaccine 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[employer] TR[employer] Work Phone: [facility] 02-27-2014 tetanus toxoid, redu ernie diphtheria toxoid, and acellular pertussis vaccine, adsorbed 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[facility] Work Phone: [facility] Work Phone: 01-02-2014 influenza, seasonal, injectable 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[employer] TR[employer] Work Phone: [facility] 12-14-2012 influenza virus vacc ine, unspecified formulation 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[employer] TR[employer] Work Phone: [facility] Work Phone: 10-12-2012 tetanus toxoid, redu ernie diphtheria toxoid, and acellular pertussis vaccine, adsorbed 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[employer] TR[employer] Work Phone: [facility] 06-04-2006 Meningococcal, MCV4, unspecified conjugate formulation(groups A, C, Y and W-135) 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[employer] TR[employer] Work Phone: [facility] Work Phone: 09-12-2004 measles, mumps and rubella virus vaccine 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[employer] Work Phone: [facility] Work Phone: 05-17-2002 diphtheria and tetan us toxoids, adsorbed for pediatric use 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[facility] Work Phone: [facility] Work Phone: 11-01-1996 poliovirus vaccine, inactivated 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[employer] Work Phone: [facility] Work Phone: 11-01-1996 Tetramune 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 [employer] Work Phone: [facility] Work Phone: 07-17-1993 haemophilus influenz ae type b vaccine, HbOC conjugate 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[facility] Work Phone: [facility] Work Phone: 07-17-1993 hepatitis B vaccine, pediatric or pediatric/adolescent dosage 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[facility] Work Phone: [facility] Work Phone: 07-17-1993 measles, mumps and rubella virus vaccine 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[employer] Work Phone: [facility] Work Phone: 07-17-1993 poliovirus vaccine, inactivated 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[employer] TR[employer] Work Phone: [facility] Work Phone: 1992 Tetramune 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[employer] Work Phone: [facility] Work Phone: 1992 poliovirus vaccine, inactivated 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[facility] Work Phone: [facility] Work Phone: 1992 diphtheria, tetanus toxoids and pertussis vaccine 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[facility] Work Phone: [facility] Work Phone: 1992 haemophilus influenz ae type b vaccine, HbOC conjugate 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[employer] Work Phone: [facility] Work Phone: 1992 poliovirus vaccine, inactivated 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[facility] Work Phone: [facility] Work Phone: Payers Date Payer Category Payer Medicaid [employer] [employer] [id number] 2017-Present [phone] [place] [id number] Medicaid [id number] 2017 Medicaid [employer] [employer] [place] [employer] [id number] 2017-Present [phone] [place] [id number] Medicaid [id number] 2017 Unknown [id number] 2015 Unknown [id number] 1992 Unknown [id number] Social History Date Type Detail Facility Start: 11-13-2021 Tobacco smoking stat us MSIS Never smoked tobacco [facility] Work Phone: Start: 06-04-2021 End: 11-27-2021 Alcohol intake Current drinker of alcohol (finding) [facility] Start: 07-04-2016 History SDOH Alcohol Comment Rarely [facility] Start: 1990 Sex Assigned At Not on file [facility] Start: 05-25-2021 End: 11-13-2021 Exposure to SARS-CoV-2 (event) Not sure [facility] Work Phone: Start: 11-13-2021 Tobacco use and exposure Smokeless tobacco non-user [facility] Work Phone: Start: 11-17-2021 End: 11-27-2021 Exposure to SARS-CoV-2 (event) Yes [facility] Work Phone: Clinical Notes 01-04-2018 to 11-27-2021 Li Blackmon APRN.CNP - 11/27/2021 2:26 PM Josef Muniz APRN.CNP - 11/13/2021 11:51 AM Lauren Blackmon APRN.CNP - 08/06/2021 1:51 PM Lauren Blackmon APRN.CNP - 06/04/2021 1:10 PM EDT Note Date & Type Note Facility 11-27-2021 Note HNO ID: [id number] Author: Li Blackmon APRN.CNP Service: ? Author Type: Nurse Practitioner Type: Progress Notes Filed: 11/27/2021 2:44 PM Note Text: CC: Patient presents with: Contusion HPI Pascale Vela is a 31 year old female who presents today for above. Patient reports bruised appearing swollen area on the side of her left lower leg. She denies any injury to leg, unsure where it came from. She was seen for this in urgent care on 11/13. Treated for possible cellulitis with Keflex. Patient reports this did not help. Area has become more tender. Denies increase in size or change in color. She has treated with ice without any improvement. REVIEW OF SYSTEMS General: no fevers, no chills, no night sweats, and no change in energy PAST MEDICAL HISTORY Diagnosis Date Abnormal uterine bleeding 09/11/2014 Benign mole 01/04/2018 Added automatically from request for surgery [id number] Cervicalgia 10/02/2017 Heavy menstrual bleeding 09/11/2014 IBS (irritable bowel syndrome) Migraines Neoplasm of uncertain behavior of skin 01/04/2018 PMH - PAST MEDICAL HISTORY OF 06/04/2006 normal color vision PAST SURGICAL HISTORY Procedure Laterality Date COLONOSCOPY FLX DX W/COLLJ SPEC WHEN PFRMD Colonoscopy PAST SURGICAL HISTORY OF CERVICAL LACERATION REPAIR ALLERGIES Patient has no known allergies. MEDICATIONS rimegepant (NURTEC ODT) 75 mg disintegrating tablet Take 1 tablet by mouth once daily. ondansetron orally disintegrating (ZOFRAN ODT) 4 mg disintegrating tablet Take 1 tablet by mouth every 6 hours as needed for nausea/vomiting. SUMAtriptan (IMITREX) 50 mg tablet Take at onset of migraine. Can repeat in 2 hours if no relief. No more than 100 mg in 24 hours FAMILY HISTORY Problem Relation Age of Onset No Known Problems Mother No Known Problems Father other (Mole removed) Brother Cancerous Lung Cancer Maternal Grandmother Heart Maternal Grandfather murmur Hypertension Paternal Grandmother Breast Cancer Paternal Grandmother Heart Paternal Grandfather [place], Pacemaker age 35 year Diabetes Paternal Grandfather No Known Problems Daughter No Known Problems Son Social History Tobacco Use Smoking status: Never Smokeless tobacco: Never Vaping Use Vaping Use: Never used Substance Use Topics Alcohol use: Yes Comment: Rarely Drug use: No PHYSICAL EXAM BP 124/74 (BP Site: Left Arm, BP Position: Sitting, BP Cuff Size: Large Adult) Pulse 68 Temp 36.3 ?C (97.3 ?F) (Temporal) Resp 18 Wt 88 kg (194 lb) LMP 10/24/2018 BMI 36.96 kg/m? General Appearance: well appearing, in no acute distress, alert Ext: no edema in LE bilaterally, good distal pulses, capillary refill < 2 seconds ASSESSMENT/PLAN: 1. Localized swelling of left lower leg - ICD9: 782.2, ICD10: R22.42 Etiology unclear. Possible hematoma. Findings not consistent with infection/abscess. - US EXTREMITY MASS/FLUID COLLECTION LT, patient prefers to have done at [facility] - follow-up pending results Prescription instructions reviewed with patient as applicable. Potential red flag symptoms discussed with the patient. Reviewed appropriate action plan to take if red flag symptoms occur. Patient agreeable to treatment plan. Li Blackmon APRN.JUDITH [facility] 11-27-2021 History of Present illness Narrative Images from the original note were not included. CC: Patient presents with: Contusion HPI Pascale Vela is a 31 year old female who presents today for above. Patient reports bruised appearing swollen area on the side of her left lower leg. She denies any injury to leg, unsure where it came from. She was seen for this in urgent care on 11/13. Treated for possible cellulitis with Keflex. Patient reports this did not help. Area has become more tender. Denies increase in size or change in color. She has treated with ice without any improvement. REVIEW OF SYSTEMS General: no fevers, no chills, no night sweats, and no change in energy PAST MEDICAL HISTORY Diagnosis Date Abnormal uterine bleeding 09/11/2014 Benign mole 01/04/2018 Added automatically from request for surgery [id number] Cervicalgia 10/02/2017 Heavy menstrual bleeding 09/11/2014 IBS (irritable bowel syndrome) Migraines Neoplasm of uncertain behavior of skin 01/04/2018 PMH - PAST MEDICAL HISTORY OF 06/04/2006 normal color vision PAST SURGICAL HISTORY Procedure Laterality Date COLONOSCOPY FLX DX W/COLLJ SPEC WHEN PFRMD Colonoscopy PAST SURGICAL HISTORY OF CERVICAL LACERATION REPAIR ALLERGIES Patient has no known allergies. MEDICATIONS rimegepant (NURTEC ODT) 75 mg disintegrating tablet Take 1 tablet by mouth once daily. ondansetron orally disintegrating (ZOFRAN ODT) 4 mg disintegrating tablet Take 1 tablet by mouth every 6 hours as needed for nausea/vomiting. SUMAtriptan (IMITREX) 50 mg tablet Take at onset of migraine. Can repeat in 2 hours if no relief. No more than 100 mg in 24 hours FAMILY HISTORY Problem Relation Age of Onset No Known Problems Mother No Known Problems Father other (Mole removed) Brother Cancerous Lung Cancer Maternal Grandmother Heart Maternal Grandfather murmur Hypertension Paternal Grandmother Breast Cancer Paternal Grandmother Heart Paternal Grandfather [place], Pacemaker age 35 year Diabetes Paternal Grandfather No Known Problems Daughter No Known Problems Son Social History Tobacco Use Smoking status: Never Smokeless tobacco: Never Vaping Use Vaping Use: Never used Substance Use Topics Alcohol use: Yes Comment: Rarely Drug use: No PHYSICAL EXAM BP 124/74 (BP Site: Left Arm, BP Position: Sitting, BP Cuff Size: Large Adult) Pulse 68 Temp 36.3 C (97.3 F) (Temporal) Resp 18 Wt 88 kg (194 lb) LMP 10/24/2018 BMI 36.96 kg/m General Appearance: well appearing, in no acute distress, alert Ext: no edema in LE bilaterally, good distal pulses, capillary refill < 2 seconds ASSESSMENT/PLAN: 1. Localized swelling of left lower leg - ICD9: 782.2, ICD10: R22.42 Etiology unclear. Possible hematoma. Findings not consistent with infection/abscess. - US EXTREMITY MASS/FLUID COLLECTION LT, patient prefers to have done at [facility] - follow-up pending results Prescription instructions reviewed with patient as applicable. Potential red flag symptoms discussed with the patient. Reviewed appropriate action plan to take if red flag symptoms occur. Patient agreeable to treatment plan. Li Blackmon APRN.JUDITH documented in this encounter [facility] 11-13-2021 Note HNO ID: [id number] Author: Justin Muniz APRN.CNP Service: ? Author Type: Nurse Practitioner Type: Progress Notes Filed: 11/13/2021 12:14 PM Note Text: Subjective HPI Nontoxic-appearing female presents urgent care chief complaint rash and redness. Duration of symptoms 1 month. Associated symptoms area started out as a small red teddy. Has since increased in size and discomfort. Patient states over the last week this area has increased in size and has became painful. Has not used any OTC medications. Denies any Injuries. No recent medication changes or recent antibiotic use. No recent lifestyle changes or environmental changes. Denies any fever body aches chills cough chest pain shortness of breath change in bowel or bladder habits. Overall feels well. Denies chance of is not breast-feeding. .Patient presents with: Derm Problem: rash and redness on left sanders, painful x 1 month PAST MEDICAL HISTORY Diagnosis Date Abnormal uterine bleeding 09/11/2014 Benign mole 01/04/2018 Added automatically from request for surgery [id number] Cervicalgia 10/02/2017 Heavy menstrual bleeding 09/11/2014 IBS (irritable bowel syndrome) Migraines Neoplasm of uncertain behavior of skin 01/04/2018 PMH - PAST MEDICAL HISTORY OF 06/04/2006 normal color vision PAST SURGICAL HISTORY Procedure Laterality Date COLONOSCOPY FLX DX W/COLLJ SPEC WHEN PFRMD Colonoscopy PAST SURGICAL HISTORY OF CERVICAL LACERATION REPAIR ALLERGIES Patient has no known allergies. MEDICATIONS rimegepant (NURTEC ODT) 75 mg disintegrating tablet Take 1 tablet by mouth once daily. ondansetron orally disintegrating (ZOFRAN ODT) 4 mg disintegrating tablet Take 1 tablet by mouth every 6 hours as needed for nausea/vomiting. SUMAtriptan (IMITREX) 50 mg tablet Take at onset of migraine. Can repeat in 2 hours if no relief. No more than 100 mg in 24 hours FAMILY HISTORY Problem Relation Age of Onset No Known Problems Mother No Known Problems Father other (Mole removed) Brother Cancerous Lung Cancer Maternal Grandmother Heart Maternal Grandfather murmur Hypertension Paternal Grandmother Breast Cancer Paternal Grandmother Heart Paternal Grandfather [place], Pacemaker age 35 year Diabetes Paternal Grandfather No Known Problems Daughter No Known Problems Son Social History Tobacco Use Smoking status: Never Smokeless tobacco: Never Vaping Use Vaping Use: Never used Substance Use Topics Alcohol use: Yes Comment: Rarely Drug use: No BP 118/68 Pulse 92 Temp 36.7 ?C (98 ?F) Resp 16 Wt 88.9 kg (196 lb) LMP 10/24/2018 SpO2 99% BMI 37.34 kg/m? Review of Systems Constitutional: Negative for chills, fever and malaise/fatigue. HENT: Negative for congestion, ear discharge, ear pain, sinus pain and sore throat. Eyes: Negative for blurred vision, pain, discharge and redness. Respiratory: Negative for cough, hemoptysis, sputum production, shortness of breath, wheezing and stridor. Cardiovascular: Negative for chest pain. Gastrointestinal: Negative for abdominal pain, diarrhea, nausea and vomiting. Musculoskeletal: Negative for myalgias. Skin: Positive for itching. Negative for rash. Neurological: Negative for dizziness and headaches. Objective Physical Exam Constitutional: General: She is not in acute distress. Appearance: She is not diaphoretic. HENT: Head: Normocephalic. Eyes: Conjunctiva/sclera: Conjunctivae normal. Pupils: Pupils are equal, round, and reactive to light. Cardiovascular: Rate and Rhythm: Normal rate and regular rhythm. Heart sounds: Normal heart sounds. Pulmonary: Effort: Pulmonary effort is normal. No tachypnea, accessory muscle usage or respiratory distress. Breath sounds: Normal breath sounds. No stridor. No wheezing, rhonchi or rales. Abdominal: Palpations: Abdomen is soft. Tenderness: There is no abdominal tenderness. Musculoskeletal: Cervical back: Normal range of motion and neck supple. No rigidity or tenderness. Lymphadenopathy: Cervical: No cervical adenopathy. Skin: General: Skin is warm and dry. Comments: A 4 cm x 3 cm area of of redness noted. No fluctuance. No remote redness. No drainage. Pain with palpation over this area. No breaks in skin. Neurological: Mental Status: She is alert and oriented to person, place, and time. ASSESSMENT/PLAN: 1. Cellulitis of left lower extremity - ICD9: 682.6, ICD10: L03.116 Contact dermatitis versus cellulitis. Will be placed on Keflex at today's visit. Follow-up with PCP 3 to 5 days symptoms are not improving. Patient was educated on supportive therapies. Patient was instructed to immediately proceed to emergency room for any new, worsening, or symptoms lasting longer than anticipated. The patient's clinical presentation is otherwise unremarkable at this time. Based on exam and clinical finding, the patient is stable for discharge. Plan of care was discussed w (more content not included)... [facility] 11-13-2021 History of Present illness Narrative Images from the original note were not included. Subjective HPI Nontoxic-appearing female presents urgent care chief complaint rash and redness. Duration of symptoms 1 month. Associated symptoms area started out as a small red teddy. Has since increased in size and discomfort. Patient states over the last week this area has increased in size and has became painful. Has not used any OTC medications. Denies any Injuries. No recent medication changes or recent antibiotic use. No recent lifestyle changes or environmental changes. Denies any fever body aches chills cough chest pain shortness of breath change in bowel or bladder habits. Overall feels well. Denies chance of is not breast-feeding. .Patient presents with: Derm Problem: rash and redness on left sanders, painful x 1 month PAST MEDICAL HISTORY Diagnosis Date Abnormal uterine bleeding 09/11/2014 Benign mole 01/04/2018 Added automatically from request for surgery [id number] Cervicalgia 10/02/2017 Heavy menstrual bleeding 09/11/2014 IBS (irritable bowel syndrome) Migraines Neoplasm of uncertain behavior of skin 01/04/2018 PMH - PAST MEDICAL HISTORY OF 06/04/2006 normal color vision PAST SURGICAL HISTORY Procedure Laterality Date COLONOSCOPY FLX DX W/COLLJ SPEC WHEN PFRMD Colonoscopy PAST SURGICAL HISTORY OF CERVICAL LACERATION REPAIR ALLERGIES Patient has no known allergies. MEDICATIONS rimegepant (NURTEC ODT) 75 mg disintegrating tablet Take 1 tablet by mouth once daily. ondansetron orally disintegrating (ZOFRAN ODT) 4 mg disintegrating tablet Take 1 tablet by mouth every 6 hours as needed for nausea/vomiting. SUMAtriptan (IMITREX) 50 mg tablet Take at onset of migraine. Can repeat in 2 hours if no relief. No more than 100 mg in 24 hours FAMILY HISTORY Problem Relation Age of Onset No Known Problems Mother No Known Problems Father other (Mole removed) Brother Cancerous Lung Cancer Maternal Grandmother Heart Maternal Grandfather murmur Hypertension Paternal Grandmother Breast Cancer Paternal Grandmother Heart Paternal Grandfather [place], Pacemaker age 35 year Diabetes Paternal Grandfather No Known Problems Daughter No Known Problems Son Social History Tobacco Use Smoking status: Never Smokeless tobacco: Never Vaping Use Vaping Use: Never used Substance Use Topics Alcohol use: Yes Comment: Rarely Drug use: No BP 118/68 Pulse 92 Temp 36.7 C (98 F) Resp 16 Wt 88.9 kg (196 lb) LMP 10/24/2018 SpO2 99% BMI 37.34 kg/m Review of Systems Constitutional: Negative for chills, fever and malaise/fatigue. HENT: Negative for congestion, ear discharge, ear pain, sinus pain and sore throat. Eyes: Negative for blurred vision, pain, discharge and redness. Respiratory: Negative for cough, hemoptysis, sputum production, shortness of breath, wheezing and stridor. Cardiovascular: Negative for chest pain. Gastrointestinal: Negative for abdominal pain, diarrhea, nausea and vomiting. Musculoskeletal: Negative for myalgias. Skin: Positive for itching. Negative for rash. Neurological: Negative for dizziness and headaches. Objective Physical Exam Constitutional: General: She is not in acute distress. Appearance: She is not diaphoretic. HENT: Head: Normocephalic. Eyes: Conjunctiva/sclera: Conjunctivae normal. Pupils: Pupils are equal, round, and reactive to light. Cardiovascular: Rate and Rhythm: Normal rate and regular rhythm. Heart sounds: Normal heart sounds. Pulmonary: Effort: Pulmonary effort is normal. No tachypnea, accessory muscle usage or respiratory distress. Breath sounds: Normal breath sounds. No stridor. No wheezing, rhonchi or rales. Abdominal: Palpations: Abdomen is soft. Tenderness: There is no abdominal tenderness. Musculoskeletal: Cervical back: Normal range of motion and neck supple. No rigidity or tenderness. Lymphadenopathy: Cervical: No cervical adenopathy. Skin: General: Skin is warm and dry. Comments: A 4 cm x 3 cm area of of redness noted. No fluctuance. No remote redness. No drainage. Pain with palpation over this area. No breaks in skin. Neurological: Mental Status: She is alert and oriented to person, place, and time. ASSESSMENT/PLAN: 1. Cellulitis of left lower extremity - ICD9: 682.6, ICD10: L03.116 Contact dermatitis versus cellulitis. Will be placed on Keflex at today's visit. Follow-up with PCP 3 to 5 days symptoms are not improving. Patient was educated on supportive therapies. Patient was instructed to immediately proceed to emergency room for any new, worsening, or symptoms lasting longer than anticipated. The patient's clinical presentation is otherwise unremarkable at this time. Based on exam and clinical finding, the patient is stable for discharge. Plan of care was discussed with patient. Patient verbalizes understanding and agrees to plan of care. This note was generated using [employer] software. It may contain errors in wording, punctuation, or spelling. Justin Muniz APRN.JUDITH documented in this encounter [facility] 08-06-2021 Note HNO ID: [id number] Author: Li Blackmon APRN.CNP Service: ? Author Type: Nurse Practitioner Type: Progress Notes Filed: 08/06/2021 2:03 PM Note Text: CC: Patient presents with: Medication Follow-up HPI Pascale Vela is a 31 year old female who presents today for above. Patient was started on Nurtec 06/04 for frequent, debilitating migraines. Today she reports she has only had 3 migraines since starting medication. They were not severe and resolved quickly without interfering with ADL's.She has only needed Zofran and Imitrex for one of those migraines. No side effects. She was also treated for vitamin D deficiency x 12 weeks. Fatigue has resolved and vit D level normal. REVIEW OF SYSTEMS See HPI PAST MEDICAL HISTORY Diagnosis Date - Abnormal uterine bleeding 09/11/2014 - Benign mole 01/04/2018 Added automatically from request for surgery [id number] - Cervicalgia 10/02/2017 - Heavy menstrual bleeding 09/11/2014 - IBS (irritable bowel syndrome) - Migraines - Neoplasm of uncertain behavior of skin 01/04/2018 - PMH - PAST MEDICAL HISTORY OF 06/04/2006 normal color vision PAST SURGICAL HISTORY Procedure Laterality Date - COLONOSCOPY FLX DX W/COLLJ SPEC WHEN PFRMD Colonoscopy - PAST SURGICAL HISTORY OF CERVICAL LACERATION REPAIR ALLERGIES Patient has no known allergies. MEDICATIONS rimegepant (NURTEC ODT) 75 mg disintegrating tablet Take 1 tablet by mouth once daily as needed. ondansetron orally disintegrating (ZOFRAN ODT) 4 mg disintegrating tablet Take 1 tablet by mouth every 6 hours as needed for nausea/vomiting. SUMAtriptan (IMITREX) 50 mg tablet Take at onset of migraine. Can repeat in 2 hours if no relief. No more than 100 mg in 24 hours FAMILY HISTORY Problem Relation Age of Onset - No Known Problems Mother - No Known Problems Father - other (Mole removed) Brother Cancerous - Lung Cancer Maternal Grandmother - Heart Maternal Grandfather murmur - Hypertension Paternal Grandmother - Breast Cancer Paternal Grandmother - Heart Paternal Grandfather [place], Pacemaker age 35 year - Diabetes Paternal Grandfather - No Known Problems Daughter - No Known Problems Son Social History Tobacco Use - Smoking status: Never Smoker - Smokeless tobacco: Never Used Vaping Use - Vaping Use: Never used Substance Use Topics - Alcohol use: Yes Comment: Rarely - Drug use: No PHYSICAL EXAM BP 112/82 Pulse 76 Resp 14 Wt 86.2 kg (190 lb) LMP 10/24/2018 BMI 36.20 kg/m? General Appearance: well appearing, in no acute distress, alert Pysch: mood and affect broad and appropriate DATA REVIEWED: Most recent labs ASSESSMENT/PLAN: 1. Chronic migraine without aura without status migrainosus, not intractable - ICD9: 346.70, ICD10: G43.709 (primary diagnosis) Marked improvement with Nurtec. Only 3 migraine days since starting. No medication side effects. Continue with Nurtec as prescribed. Follow-up in May for annual physical. 2. Vitamin D deficiency - ICD9: 268.9, ICD10: E55.9 resolved Prescription instructions reviewed with patient as applicable. Potential red flag symptoms discussed with the patient. Reviewed appropriate action plan to take if red flag symptoms occur. Patient agreeable to treatment plan. During this patient visit I have spent approximately 20 minutes in counseling regarding medications, test results and coordinating care. Li Blackmon APRN.[facility] 08-06-2021 History of Present illness Narrative CC: Patient presents with: Medication Follow-up HPI Pascale Vela is a 31 year old female who presents today for above. Patient was started on Nurtec 06/04 for frequent, debilitating migraines. Today she reports she has only had 3 migraines since starting medication. They were not severe and resolved quickly without interfering with ADL's.She has only needed Zofran and Imitrex for one of those migraines. No side effects. She was also treated for vitamin D deficiency x 12 weeks. Fatigue has resolved and vit D level normal. REVIEW OF SYSTEMS See HPI PAST MEDICAL HISTORY Diagnosis Date Abnormal uterine bleeding 09/11/2014 Benign mole 01/04/2018 Added automatically from request for surgery [id number] Cervicalgia 10/02/2017 Heavy menstrual bleeding 09/11/2014 IBS (irritable bowel syndrome) Migraines Neoplasm of uncertain behavior of skin 01/04/2018 PMH - PAST MEDICAL HISTORY OF 06/04/2006 normal color vision PAST SURGICAL HISTORY Procedure Laterality Date COLONOSCOPY FLX DX W/COLLJ SPEC WHEN PFRMD Colonoscopy PAST SURGICAL HISTORY OF CERVICAL LACERATION REPAIR ALLERGIES Patient has no known allergies. MEDICATIONS rimegepant (NURTEC ODT) 75 mg disintegrating tablet Take 1 tablet by mouth once daily as needed. ondansetron orally disintegrating (ZOFRAN ODT) 4 mg disintegrating tablet Take 1 tablet by mouth every 6 hours as needed for nausea/vomiting. SUMAtriptan (IMITREX) 50 mg tablet Take at onset of migraine. Can repeat in 2 hours if no relief. No more than 100 mg in 24 hours FAMILY HISTORY Problem Relation Age of Onset No Known Problems Mother No Known Problems Father other (Mole removed) Brother Cancerous Lung Cancer Maternal Grandmother Heart Maternal Grandfather murmur Hypertension Paternal Grandmother Breast Cancer Paternal Grandmother Heart Paternal Grandfather [place], Pacemaker age 35 year Diabetes Paternal Grandfather No Known Problems Daughter No Known Problems Son Social History Tobacco Use Smoking status: Never Smoker Smokeless tobacco: Never Used Vaping Use Vaping Use: Never used Substance Use Topics Alcohol use: Yes Comment: Rarely Drug use: No PHYSICAL EXAM BP 112/82 Pulse 76 Resp 14 Wt 86.2 kg (190 lb) LMP 10/24/2018 BMI 36.20 kg/m General Appearance: well appearing, in no acute distress, alert Pysch: mood and affect broad and appropriate DATA REVIEWED: Most recent labs ASSESSMENT/PLAN: 1. Chronic migraine without aura without status migrainosus, not intractable - ICD9: 346.70, ICD10: G43.709 (primary diagnosis) Marked improvement with Nurtec. Only 3 migraine days since starting. No medication side effects. Continue with Nurtec as prescribed. Follow-up in May for annual physical. 2. Vitamin D deficiency - ICD9: 268.9, ICD10: E55.9 resolved Prescription instructions reviewed with patient as applicable. Potential red flag symptoms discussed with the patient. Reviewed appropriate action plan to take if red flag symptoms occur. Patient agreeable to treatment plan. During this patient visit I have spent approximately 20 minutes in counseling regarding medications, test results and coordinating care. Li Blackmon APRN.CNP documented in this encounter [facility] 06-04-2021 History of Present illness Narrative CC: Patient presents with: Follow Up HPI Pascale Vela is a 31 year old female who presents today for above. Patient was seen 05/15 to establish care. She had reported increase in frequency and length of migraines. She was overusing OTC analgesics. Prescribed medrol dose pack and advised to discontinue all OTC analgesics, use Imitrex as needed instead. Today patient reports improvement in migraines. She has had only 4 since 05/15 and resolved quickly with Imitrex. No side effects. She is interested in starting daily preventative treatment. No new migraine symptoms since last office visit REVIEW OF SYSTEMS See HPI PAST MEDICAL HISTORY Diagnosis Date Abnormal uterine bleeding 09/11/2014 Benign mole 01/04/2018 Added automatically from request for surgery [id number] Cervicalgia 10/02/2017 Heavy menstrual bleeding 09/11/2014 IBS (irritable bowel syndrome) Migraines Neoplasm of uncertain behavior of skin 01/04/2018 PMH - PAST MEDICAL HISTORY OF 06/04/2006 normal color vision PAST SURGICAL HISTORY Procedure Laterality Date COLONOSCOPY FLX DX W/COLLJ SPEC WHEN PFRMD Colonoscopy PAST SURGICAL HISTORY OF CERVICAL LACERATION REPAIR ALLERGIES Patient has no known allergies. MEDICATIONS ondansetron orally disintegrating (ZOFRAN ODT) 4 mg disintegrating tablet Take 1 tablet by mouth every 6 hours as needed for nausea/vomiting. SUMAtriptan (IMITREX) 50 mg tablet Take at onset of migraine. Can repeat in 2 hours if no relief. No more than 100 mg in 24 hours FAMILY HISTORY Problem Relation Age of Onset No Known Problems Mother No Known Problems Father other (Mole removed) Brother Cancerous Lung Cancer Maternal Grandmother Heart Maternal Grandfather murmur Hypertension Paternal Grandmother Breast Cancer Paternal Grandmother Heart Paternal Grandfather [place], Pacemaker age 35 year Diabetes Paternal Grandfather No Known Problems Daughter No Known Problems Son Social History Tobacco Use Smoking status: Never Smoker Smokeless tobacco: Never Used Vaping Use Vaping Use: Never used Substance Use Topics Alcohol use: Yes Comment: Rarely Drug use: No PHYSICAL EXAM BP 148/80 Pulse 68 Wt 87.8 kg (193 lb 9.6 oz) LMP 10/24/2018 BMI 36.88 kg/m General Appearance: well appearing, in no acute distress, alert Pysch: mood and affect broad and appropriate Health maintenance reviewed with patient: PAP TESTING due on 07/05/2019 DEPRESSION SCREENING due on 05/15/2022 DTAP,TDAP,TD(7 - Td or Tdap) due on 02/28/2024 INFLUENZA Completed HEPATITIS C SCREENING Completed HIV SCREENING Completed COVID-19 VACCINE Completed MENINGOCOCCAL CONJUGATE Aged Out DATA REVIEWED: Most recent labs ASSESSMENT/PLAN: 1. Chronic migraine without aura without status migrainosus, not intractable - ICD9: 346.70, ICD10: G43.709 (primary diagnosis) Improved with discontinuation of OTC analgesics. Resolve quickly with Imitrex. She would benefit from daily preventative treatment, options discussed. She would like to try Nurtec due to lower incidence of side effects, prescription sent. Follow-up in 6-8 weeks or sooner as needed 2. Vitamin D deficiency - ICD9: 268.9, ICD10: E55.9 Start Vitamin D and recheck in 3 months - VITAMIN D 25 HYDROXY 3. Leukocytosis, unspecified type - ICD9: 288.60, ICD10: D72.829 recheck - CBC + DIFF 4. Elevated glucose - ICD9: 790.29, ICD10: R73.09 Patient wasn't fasting but will evaluate further with HgbA1c - HGB A1C Prescription instructions reviewed with patient as applicable. Potential red flag symptoms discussed with the patient. Reviewed appropriate action plan to take if red flag symptoms occur. Patient agreeable to treatment plan. During this patient visit I have spent approximately 20 minutes in counseling regarding treatment options, medications, test results and coordinating care. Li Blackmon APRN.JUDITH documented in this encounter [facility] 01-04-2018 History of Past i llness Narrative Problem Noted Date Resolved Date Benign mole 01/04/2018 05/15/2021 Overview: Added automatically from request for surgery [id number] Neoplasm of uncertain behavior of skin 8 05/15/2021 Cervicalgia 10/02/2017 05/15/2021 Heavy menstrual bleeding 09/11/2014 022 Abnormal uterine bleeding 09/11/20142021 Supervision of normal 01/02/2014 09/11/2014 Short interval between pregn ancies complicating , antepartum 10/10/2013 09/11/2014 Overview: 10/10/2013Katy delivered her previous child 01/11/2013. TKRN Support system deficit 10/10/2013 5 Overview: 10/09/2013Katy and her are in the process of getting a divorce. He is the father of the baby. She states he is not interested in being involved with this . TKRN Nausea/vomiting in 10/10/201308/2014 Overview: 10/09/2013 Patient was seen at [facility] emergency room 3 days ago for nausea and diarrhea. She was given a prescription for Zofran. She states that she has not used the prescription because her nausea is better. Advised patient to call/come in if she is unable to keep any food or fluids down in a 24-hour period. TKRN Diarrhea 10/10/2013 09/11/2014 Overview: 10/09/2013Katy states she has had diarrhea for one month. Discussed with Dr. Candace Ramires and she recommended the patient established with a PCP for a workup to to the diarrhea. TKRN Supervision of normal first 07/20/2012 01/02/2014 Family history of Down syndrome 05/11/2012 09/11/2014 Overview: 05/11/2012The father of the baby's first cousin has Down syndrome. Another of his first cousin has mental retardation. documented as of this encounter (statuses as of 06/04/2021) [facility] History of Past illness Narrative* Problem Noted Date Resolved Date Benign mole 01/04/2018 05/15/2021 Overview: Added automatically from request for surgery [id number] Neoplasm of uncertain behavior of skin 8 05/15/2021 Cervicalgia 10/02/2017 05/15/2021 Heavy menstrual bleeding 09/11/2014 022 Abnormal uterine bleeding 09/11/20142021 Supervision of normal 01/02/2014 09/11/2014 Short interval between pregn ancies complicating , antepartum 10/10/2013 09/11/2014 Overview: 10/10/2013Katy delivered her previous child 01/11/2013. TKRN Support system deficit 10/10/2013 5 Overview: 10/09/2013Katy and her are in the process of getting a divorce. He is the father of the baby. She states he is not interested in being involved with this . TKRN Nausea/vomiting in 10/10/201308/2014 Overview: 10/09/2013 Patient was seen at [facility] emergency room 3 days ago for nausea and diarrhea. She was given a prescription for Zofran. She states that she has not used the prescription because her nausea is better. Advised patient to call/come in if she is unable to keep any food or fluids down in a 24-hour period. TKRN Diarrhea 10/10/2013 09/11/2014 Overview: 10/09/2013Katy states she has had diarrhea for one month. Discussed with Dr. Candace Ramires and she recommended the patient established with a PCP for a workup to to the diarrhea. TKRN Supervision of normal first 07/20/2012 01/02/2014 Family history of Down syndrome 05/11/2012 09/11/2014 Overview: 05/11/2012The father of the baby's first cousin has Down syndrome. Another of his first cousin has mental retardation. documented as of this encounter (statuses as of 08/06/2021) [facility] History of Past illness Narrative* Problem Noted Date Resolved Date Benign mole 01/04/2018 05/15/2021 Overview: Added automatically from request for surgery [id number] Neoplasm of uncertain behavior of skin 8 05/15/2021 Cervicalgia 10/02/2017 05/15/2021 Heavy menstrual bleeding 09/11/2014 022 Abnormal uterine bleeding 09/11/20142021 Supervision of normal 01/02/2014 09/11/2014 Short interval between pregn ancies complicating , antepartum 10/10/2013 09/11/2014 Overview: 10/10/2013Katy delivered her previous child 01/11/2013. TKRN Support system deficit 10/10/2013 5 Overview: 10/09/2013Katy and her are in the process of getting a divorce. He is the father of the baby. She states he is not interested in being involved with this . TKRN Nausea/vomiting in 10/10/201308/2014 Overview: 10/09/2013 Patient was seen at [facility] emergency room 3 days ago for nausea and diarrhea. She was given a prescription for Zofran. She states that she has not used the prescription because her nausea is better. Advised patient to call/come in if she is unable to keep any food or fluids down in a 24-hour period. TKRN Diarrhea 10/10/2013 09/11/2014 Overview: 10/09/2013Katy states she has had diarrhea for one month. Discussed with Dr. Candace Ramires and she recommended the patient established with a PCP for a workup to to the diarrhea. TKRN Supervision of normal first 07/20/2012 01/02/2014 Family history of Down syndrome 05/11/2012 09/11/2014 Overview: 05/11/2012The father of the baby's first cousin has Down syndrome. Another of his first cousin has mental retardation. documented as of this encounter (statuses as of 11/13/2021) [facility] History of Past illness Narrative* Problem Noted Date Resolved Date Benign mole 01/04/2018 05/15/2021 Overview: Added automatically from request for surgery [id number] Neoplasm of uncertain behavior of skin 8 05/15/2021 Cervicalgia 10/02/2017 05/15/2021 Heavy menstrual bleeding 09/11/2014 022 Abnormal uterine bleeding 09/11/20142021 Supervision of normal 01/02/2014 09/11/2014 Short interval between pregn ancies complicating , antepartum 10/10/2013 09/11/2014 Overview: 10/10/2013Katy delivered her previous child 01/11/2013. TKRN Support system deficit 10/10/2013 5 Overview: 10/09/2013Katy and her are in the process of getting a divorce. He is the father of the baby. She states he is not interested in being involved with this . TKRN Nausea/vomiting in 10/10/201308/2014 Overview: 10/09/2013 Patient was seen at [facility] emergency room 3 days ago for nausea and diarrhea. She was given a prescription for Zofran. She states that she has not used the prescription because her nausea is better. Advised patient to call/come in if she is unable to keep any food or fluids down in a 24-hour period. TKRN Diarrhea 10/10/2013 09/11/2014 Overview: 10/09/2013Katy states she has had diarrhea for one month. Discussed with Dr. Candace Ramires and she recommended the patient established with a PCP for a workup to to the diarrhea. TKRN Supervision of normal first 07/20/2012 01/02/2014 Family history of Down syndrome 05/11/2012 09/11/2014 Overview: 05/11/2012The father of the baby's first cousin has Down syndrome. Another of his first cousin has mental retardation. documented as of this encounter (statuses as of 11/27/2021) [facility] Chronic migraine without aura without status migrainosus, not intractable- Primary Chronic migraine without aura, without mention of intractable migraine without mention of status migrainosus Vitamin D deficiency Unspecified vitamin D deficiency Leukocytosis, unspecified type Elevated glucose Other abnormal glucose [facility] Diagnosis Chronic migraine without aura without status migrainosus, not intractable- Primary Chronic migraine without aura, without mention of intractable migraine without mention of status migrainosus Vitamin D deficiency Unspecified vitamin D deficiency [facility] Diagnosis Cellulitis of left lower extremity- Primary Cellulitis and abscess of leg, except foot [facility] Diagnosis Localized swelling of left lower leg- Primary [facility] Diagnostic Procedure Only (Routine) - Pending Review Specialty Diagnoses / Procedures Referred By Macario delgado Referred To Contact US IMAGING Diagnoses Localized swelling of left lower leg Procedures US EXTREMITY MASS/FLUID COLLECTION LT Abilio, Li, GRADER OPERATOR.BEAD TRIMMER [address] [place] [address] Us Imaging Referral ID Status Reason Start Date Expiration Date Visits Requested Visits Authorized [id number] Pending Review Auto-Generat ed Referral 11/27/2021 12/27/2022 1 1 [facility] Summary Purpose Family History No Family History Records FoundNo Family History Records FoundNo Family History Records Found Advance Directives No Advanced Directives Records FoundNo Advanced Directives Records FoundNo Advanced Directives Records Found Additional Source Comments INFORMATION SOURCE (unrecogn ized section and content) DATE CREATED AUTHOR 04/26/2018 [facility] ([place]) DATE CREATED AUTHOR AUTHOR'S ORGANIZ ATION 09/27/2019 [facility] DATE CREATED AUTHOR AUTHOR'S ORGANIZ ATION 06/13/2022 [facility] Source Comments (unrecognize d section and content) In the event this informatio n is protected by the Federal Confidentiality of Alcohol and Drug Abuse Patient Records regulations: The Federal rules restrict any use of the information to criminally investigate or prosecute any alcohol or drug abuse patient.[facility] the event this information is protected by the Federal Confidentiality of Alcohol and Drug Abuse Patient Records regulations: The Federal rules restrict any use of the information to criminally investigate or prosecute any alcohol or drug abuse patient.[facility] the event this information is protected by the Federal Confidentiality of Alcohol and Drug Abuse Patient Records regulations: The Federal rules restrict any use of the information to criminally investigate or prosecute any alcohol or drug abuse patient.[facility] the event this information is protected by the Federal Confidentiality of Alcohol and Drug Abuse Patient Records regulations: The Federal rules restrict any use of the information to criminally investigate or prosecute any alcohol or drug abuse patient.[facility] Reason for Visit (unrecogniz ed section and content) Reason Comments Follow Up Reason Comments Medication Follow-up Reason Comments Derm Problem rash and redness on left sanders, painful x 1 month Reason Comments Contusion Care Teams (unrecognized sec tion and content) Paid Search Marketing Analyst Relationship Specialty Start Date End Date Smooth Charles MD [address] [place] [address] PCP - General Internal Medicine 05/15/21 Paid Search Marketing Analyst Relationship Specialty Start Date End Date Smooth Charles MD [address] [place] [address] PCP - General Internal Medicine 05/15/21 Paid Search Marketing Analyst Relationship Specialty Start Date End Date Smooth Charles MD [address] [place] [address] PCP - General Internal Medicine 05/15/21 FOR RECORDS PERTAINING TO PATIENTS WHO ARE OR HAVE BEEN ENROLLED IN A CHEMICAL DEPENDENCY/SUBSTANCEABUSE PROGRAM, SOME INFORMATION MAY BE OMITTED. This clinical summary was aggregated from multiple sources. Caution should be exercised in using it in the provision of clinical care. This summary normalizes information from multiple sources, and as a consequence, information in this document may materially change the coding, format and clinical context of patient data. In addition, data may be omitted in some cases. CLINICAL DECISIONS SHOULD BE BASED ON THE PRIMARY CLINICAL RECORDS. [facility] [employer] provides no warranty or guarantee of the accuracy or completeness of information in this document.
== END | disposition home or self-care (01) ==
LOC: US 08:26
PROVIDERS: PCP Family Medicine; Referring Provider Internal Medicine Gastroenterology; Visit Provider Internal Medicine Gastroenterology
DX: R74.01 Elevation of levels of liver transaminase levels (principal); K58.9 Irritable bowel syndrome, unspecified
CPT/HCPCS: 76705; 76981

== ENCOUNTER 2024-02-05 05:23 | Day surgery (SDC) | payer OTHER, SELFPAY ==
[2024-02-05] VITALS (9 sets, daily range): BP systolic 93–119; BP diastolic 57–69; PULSE 86–101; RESP 16–17; TEMP 36.1–36.7; O2SAT 74–96; BMI 39.6
[2024-02-05 05:54] LABS: Internal QC Validated? YES +Cl - CLEAR BKGD; Pregnancy, Urine Negative Negative
== END 2024-02-05 07:53 | disposition home or self-care (01) ==
LOC: EN 05:24 → AC 05:25
PROVIDERS: Anesthesiology; PCP Family Medicine; Referring Provider Family Medicine; Visit Provider Internal Medicine Gastroenterology
PROC: 0DJ08ZZ Inspection of Upper Intestinal Tract, Via Natural or Artificial Opening Endoscopic (ICD-10-PCS; CPT 43235; principal; 2024-02-05 06:25)
DX: K22.6 Gastro-esophageal laceration-hemorrhage syndrome (principal); K29.50 Unspecified chronic gastritis without bleeding; K31.89 Other diseases of stomach and duodenum; K58.0 Irritable bowel syndrome with diarrhea; K21.9 Gastro-esophageal reflux disease without esophagitis; K30 Functional dyspepsia; R74.01 Elevation of levels of liver transaminase levels; Z79.899 Other long term (current) drug therapy; Z86.16 Personal history of COVID-19
CPT/HCPCS: 43239; 81025; 88305; 88342; A4216; J2405

== ENCOUNTER 2024-02-08 11:44 | Outpatient (RCR) | payer OTHER, SELFPAY | END 2024-03-08 23:59 | LOC: NS 11:44 | PROVIDERS: PCP Family Medicine; Referring Provider Student in an Organized Health Care Education/Training Program; Visit Provider Student in an Organized Health Care Education/Training Program | DX: Z71.3 Dietary counseling and surveillance (principal); K90.0 Celiac disease | CPT/HCPCS: 97802 ==

== ENCOUNTER → 2024-02-12 | Outpatient (CLI) | payer OTHER, SELFPAY ==
--- NOTE | 2024-02-12 10:11 | NM_ITS ---
CLINICAL: 33-year-old female with history of refractory gastroesophageal reflux disease. SEMI-SOLID PHASE 99m Tc SULFUR COLLOID GASTRIC EMPTYING STUDY COMPARISON: Abdominal ultrasound report 01/01/2024 FINDINGS: The patient was administered 1.2 mCi of 99m Tc sulfur colloid mixed with oatmeal and consumed per os. Image acquisitions in the anterior-posterior projections for a total of 60 minutes. There is prompt visualization of the stomach. There is no gastroesophageal reflux identified. The T ? linear fit was calculated to be 36.88 minutes, (Normal: 12-56 minutes). NM/Gastric Emptying Study IMPRESSION: 1. NORMAL 99m Tc sulfur colloid semi-solid phase (oatmeal) gastric emptying imaging examination. A. There is normal and preserved semi-solid phase gastric emptying compared to normal controls. (Nay et al, J Nucl Med Tech 38: 186, 2010). Electronically Signed: Ba Velazco DO at 8:56 EST ,
== END | disposition home or self-care (01) ==
LOC: NM 10:06
PROVIDERS: PCP Family Medicine; Referring Provider Internal Medicine Gastroenterology; Visit Provider Internal Medicine Gastroenterology
DX: R74.01 Elevation of levels of liver transaminase levels (principal); K58.9 Irritable bowel syndrome, unspecified; K21.9 Gastro-esophageal reflux disease without esophagitis
CPT/HCPCS: 78264; A9541

== ENCOUNTER → 2024-04-13 | Outpatient (CLI) | payer OTHER, SELFPAY ==
--- NOTE | 2024-04-13 13:23 | RAD_ITS ---
EXAM: XR Chest, 2 Views CLINICAL INDICATION: TECHNIQUE: Frontal and lateral views of the chest. COMPARISON: No relevant prior studies available. FINDINGS: LUNGS AND PLEURAL SPACES: Unremarkable. No consolidation. No pneumothorax. HEART: Unremarkable. No cardiomegaly. MEDIASTINUM: Unremarkable. Normal mediastinal contour. BONES/JOINTS: Unremarkable. No acute fracture. RAD/Chest PA and Lateral IMPRESSION: No acute cardiopulmonary process. Reading [facility]
== END | disposition home or self-care (01) ==
PROVIDERS: PCP Family Medicine; Referring Provider Nurse Practitioner; Visit Provider Nurse Practitioner
DX: R05.1 Acute cough (principal)
CPT/HCPCS: 71046

== ENCOUNTER → 2024-08-24 | Outpatient (CLI) | payer OTHER, SELFPAY ==
[2024-08-24 12:36] LABS: Basophil# 0.05 X10^3/uL; Basophil% 0.8 % (0-1); Eosinophil# 0.09 X10^3/uL; Eosinophils% 1.5 % (0-5); Hematocrit 39.1 % (37-47); Lymphocyte % 38.7 % (19-41); Mean Corp Hgb Conc 33.2 g/dL (32-36); Mean Corpuscular Hgb 28.6 pg (27.0-32.0); Mean Corpuscular Volume 85.9 fL (81-99); Monocyte# 0.52 X10^3/uL; Monocyte% 8.7 % (0-10); NRBC Flagged by Analyzer 0 % (0-5); Neutrophil # 2.97 X10^3/uL (2.7-7.7); Platelet Count 294 K/mm3 (150-450); RBC Distribution Width CV 12.7 % (11.6-14.6); RBC Distribution Width SD 39.5 fl (35.1-43.9); Red Blood Count 4.55 M/mm3 (4.2-5.4)
[2024-08-24 12:58] LABS: ALB/GLOB Ratio 1.4 RATIO (0.9-2.4); AST(SGOT) 21 U/L (<=31); Alanine Aminotransfer ALT/SGPT 27 U/L (<=34); Albumin, Serum 4.2 g/dL (3.5-5.0); Alkaline Phosphatase 48 U/L (35-104); Anion Gap 11 (5-15); BUN 9 mg/dL (4-19); BUN/Creat Ratio 10.5 RATIO (10-20); Calcium,Total 9.1 mg/dL (7.6-11.0); Carbon Dioxide 22.3 mmol/L (21.0-32.0); Chloride 104 mmol/L (98-108); Creatinine, Serum 0.82 mg/dL (0.70-1.20); EST Glomerular Filtration Rate 97 (>60); Glucose 96 mg/dL (70-99); Lipase 17 U/L (13-75); Potassium 4.1 mmol/L (3.3-5.1); Protein, Total 7.3 g/dL (5.9-8.4); Sodium Level 137 mmol/L (133-145); Total Bilirubin 0.43 mg/dL (0.00-1.30)
[2024-08-25 17:07] LABS: Endomysial Antibody IgA Negative (Negative); Immunoglobulin A 327 mg/dL (87-352); t-Transglutaminase IgA 3 U/mL (0-3)
== END | disposition home or self-care (01) ==
LOC: BIMLAB 08:35
PROVIDERS: PCP Family Medicine; Referring Provider Student in an Organized Health Care Education/Training Program; Visit Provider Student in an Organized Health Care Education/Training Program
DX: K21.9 Gastro-esophageal reflux disease without esophagitis (principal); K58.0 Irritable bowel syndrome with diarrhea; K90.0 Celiac disease
CPT/HCPCS: 36415; 80053; 82784; 83516; 83690; 85025; 86255

== ENCOUNTER → 2024-08-25 | Outpatient (CLI) | payer OTHER, SELFPAY ==
[2024-08-27 12:08] LABS: Giardia Lamblia, Stool EIA Negative (Negative)
== END | disposition home or self-care (01) ==
LOC: LABSPEC 14:22
PROVIDERS: PCP Family Medicine; Referring Provider Student in an Organized Health Care Education/Training Program; Visit Provider Student in an Organized Health Care Education/Training Program
DX: K21.9 Gastro-esophageal reflux disease without esophagitis (principal); K58.0 Irritable bowel syndrome with diarrhea; K90.0 Celiac disease
CPT/HCPCS: 83630; 83993; 87177; 87209; 87329; 87493; 87506

== ENCOUNTER → 2025-01-17 | Outpatient (CLI) | payer OTHER, SELFPAY ==
--- NOTE | 2025-01-17 09:05 | RAD_ITS ---
PROCEDURE: HIP, UNI W/ PELVIS 2-3 VIEWS 01/17/2025 REASON FOR EXAM: RIGHT HIP PAIN TECHNIQUE: Procedure Code: RAD Modality: DX Procedure: HIP, UNI W/ PELVIS 2-3 VIEWS Laterality: FINDINGS: No evidence of acute fracture or dislocation. Mild degenerative changes of the bilateral hips. RAD/HIP, UNI W/ Pelvis 2-3 Views IMPRESSION: No acute osseous abnormalities. Reading Location: [id number]
== END | disposition home or self-care (01) ==
PROVIDERS: PCP Family Medicine; Referring Provider Nurse Practitioner Family; Visit Provider Nurse Practitioner Family
DX: M25.551 Pain in right hip (principal)
CPT/HCPCS: 73502

== ENCOUNTER → 2025-02-09 | Outpatient (CLI) | payer OTHER, SELFPAY ==
[2025-02-09 13:01] LABS: HIV Nonreactive (Nonreactive); Hepatitis B Surface Antigen Nonreactive (Nonreactive); Hepatitis C Antibody Nonreactive (Nonreactive); Syphilis Antibodies Nonreactive (Nonreactive)
== END | disposition home or self-care (01) ==
PROVIDERS: PCP Family Medicine; Referring Provider Nurse Practitioner Family; Visit Provider Nurse Practitioner Family
DX: Z11.3 Encounter for screening for infections with a predominantly sexual mode of transmission (principal); N94.89 Other specified conditions associated with female genital organs and menstrual cycle; J35.01 Chronic tonsillitis
CPT/HCPCS: 86695; 86696; 86703; 86780; 86803; 87070; 87077; 87086; 87088; 87255; 87340; 87491; 87591

== ENCOUNTER → 2025-02-13 | Outpatient (CLI) | payer OTHER, SELFPAY ==
--- NOTE | 2025-02-13 10:11 | MRI_ITS ---
PROCEDURE: LOWER EXT JOINT ONLY (ROUTINE) 02/13/2025 REASON FOR EXAM: HIP PAIN TECHNIQUE: Procedure Code: MRILEJ Modality: MR Procedure: LOWER EXT JOINT ONLY (ROUTINE) T1, T2, stir, multiplanar and multisequence images were obtained of the right hip without IV contrast administration. COMPARISON: COMPARISON : None FINDINGS: Bone marrow and osseous structures: There is no abnormal marrow edema to suggest stress reaction or fracture. There is no MR evidence of avascular necrosis. Articular cartilage: No significant joint space narrowing. No full or partial- thickness cartilage defects are identified. Labrum: No discrete labral tear or paralabral cyst. Hip joint: There is no intra-articular body. The ligamentum teres is unremarkable. Hip abductors: The gluteus medius appears intact. There is mild distal minimus tendinopathy without tear, with a trace amount of fluid in the overlying bursa. Iliopsoas tendon: Intact without tendinosis or tear. No iliopsoas bursitis. The hamstring origins are intact. MRI/Lower Ext Joint Only (Routine) IMPRESSION: There is mild distal minimus tendinopathy without tear, with a trace amount of fluid in the overlying bursa. Reading Location: [id number]
== END | disposition home or self-care (01) ==
LOC: OPMRI 10:07
PROVIDERS: PCP Family Medicine; Referring Provider Nurse Practitioner Family; Visit Provider Nurse Practitioner Family
DX: M25.551 Pain in right hip (principal)
CPT/HCPCS: 73721